=== PATIENT | female | born 1995 | race Caucasian/White ===

== ENCOUNTER 2018-02-20 22:27 | Emergency (ER) | payer OTHER, SELFPAY ==
[2018-02-20] MEDS: AMOXICILLIN 500 MG CAP PO (23:01)
[2018-02-20] MEDS: PERCOCET 5MG/325MG TAB PO (23:02)
== END 2018-02-20 23:16 | disposition home or self-care (01) ==
LOC: M ED 22:27
DX: K02.9 Dental caries, unspecified (principal); F17.210 Nicotine dependence, cigarettes, uncomplicated; Z88.8 Allergy status to other drugs, medicaments and biological substances
CPT/HCPCS: 99282

== ENCOUNTER 2020-10-13 21:23 | Emergency (ER) | payer OTHER, SELFPAY ==
[~2020-10-13] VITALS: Ht 152.4 cm; Wt 48.2 kg
[2020-10-13 21:23] VITALS: BP 143/76
[~2020-10-13 21:23] MED LIST: ACET500T15 PO; AMOX500C PO
[2020-10-13] MEDS ORDERED: KEFLEX PO (21:30)
[2020-10-13] MEDS ORDERED: LIDOCAINE 4% TOPICAL SOLN 50 ML BTL TOP ONE (21:55)
[2020-10-13] MEDS ORDERED: BACI500O21 TOP (22:00)
== END 2020-10-13 22:27 | disposition home or self-care (01) ==
LOC: M ED 21:23
DX: G89.18 Other acute postprocedural pain (principal); S81.811D Laceration without foreign body, right lower leg, subsequent encounter; X58.XXXD Exposure to other specified factors, subsequent encounter; Y92.89 Other specified places as the place of occurrence of the external cause; Z88.8 Allergy status to other drugs, medicaments and biological substances

== ENCOUNTER 2021-04-11 22:23 | Emergency (ER) | payer OTHER ==
[~2021-04-11] VITALS: Ht 152.4 cm; Wt 45.2 kg
[~2021-04-11 22:23] MED LIST changes: +BACI500O21 TOP; +KEFLEX PO
[2021-04-11 22:24] VITALS: BP 127/79
--- OUTSIDE RECORDS SUMMARY | 2021-04-11 22:30 | CCD ---
Author Author [facility] Organization [facility] Address Unknown Phone Unavailable Care Team Providers Care Delivery Assistant Name Role Phone Elio Szymanski MD Unavailable Unavailable Elio Szymanski MD Unavailable Unavailable Elio Szymanski MD Unavailable Unavailable Elio Szymanski MD Unavailable Unavailable GRAY GONZALEZ MD Unavailable Unavailable GRAY GONZALEZ MD Unavailable Unavailable GRAY GONZALEZ MD Unavailable Unavailable GRAY GONZALEZ MD Unavailable Unavailable GRAY GONZALEZ MD Unavailable Unavailable GRAY GONZALEZ MD Unavailable Unavailable GRAY GONZALEZ MD Unavailable Unavailable GRAY GONZALEZ MD Unavailable Unavailable GRAY GONZALEZ MD Unavailable Unavailable GRAY GONZALEZ MD Unavailable Unavailable GRAY GONZALEZ MD Unavailable Unavailable GRAY GONZALEZ MD Unavailable Unavailable GRAY GONZALEZ MD Unavailable Unavailable Noah Martinez MD Unavailable Unavailable Noah Martinez MD Unavailable Unavailable Prionas, Noah Unavailable Unavailable Prionas, Noah Unavailable Unavailable Prionas, Noah Unavailable Unavailable Prionas, Noah Unavailable Unavailable Prionas, Noah Unavailable Unavailable Prionas, Noah Unavailable Unavailable Prionas, Noah Unavailable Unavailable Prionas, Noah Unavailable Unavailable Prionas, Noah Unavailable Unavailable Prionas, Noah Unavailable Unavailable Prionas, Noah Unavailable Unavailable Prionas, Noah Unavailable Unavailable Prionas, Noah Unavailable Unavailable Prionas, Noah Unavailable Unavailable Prionas, Noah Unavailable Unavailable Prionas, Noah Unavailable Unavailable Prionas, Noah Unavailable Unavailable Prionas, Noah Unavailable Unavailable Prionas, Noah Unavailable Unavailable Prionas, Noah Unavailable Unavailable Prionas, Noah Unavailable Unavailable Prionas, Noah Unavailable Unavailable Prionas, Noah Unavailable Unavailable Zane, Cindy Min MD Unavailable Unavailable Zane, Cindy Min MD Unavailable Unavailable Zane, Cindy Min MD Unavailable Unavailable UnkenCharlene watts MD Unavailable Unavailable UnkenCharlene watts MD Unavailable Unavailable UnkenCharlene watts MD Unavailable Unavailable UnkenholCharlene sellers MD Unavailable Unavailable UnkenholCharlene sellers MD Unavailable Unavailable UnkenCharlene watts MD Unavailable Unavailable Emani Palacios M.D. Unavailable Unavailable PRASHANT, [place] INGRAM SMALL MACHINE BINDERY OPERATOR, BC Unavailable Unavailable PRASHANT, [place] INGRAM SMALL MACHINE BINDERY OPERATOR, BC Unavailable Unavailable PRASHANT, [place] INGRAM SMALL MACHINE BINDERY OPERATOR, BC Unavailable Unavailable PRASHANT, [place] INGRAM SMALL MACHINE BINDERY OPERATOR, BC Unavailable Unavailable PRASHANT, [place] INGRAM SMALL MACHINE BINDERY OPERATOR, BC Unavailable Unavailable PRASHANT, [place] INGRAM SMALL MACHINE BINDERY OPERATOR, BC Unavailable Unavailable PRASHANT, [place] INGRAM SMALL MACHINE BINDERY OPERATOR, BC Unavailable Unavailable PRASHANT, [place] INGRAM SMALL MACHINE BINDERY OPERATOR, BC Unavailable Unavailable PRASHANT, [place] INGRAM SMALL MACHINE BINDERY OPERATOR, BC Unavailable Unavailable PRASHANT, [place] INGRAM SMALL MACHINE BINDERY OPERATOR, BC Unavailable Unavailable PRASHANT, [place] INGRAM SMALL MACHINE BINDERY OPERATOR, BC Unavailable Unavailable PRASHANT, [place] INGRAM SMALL MACHINE BINDERY OPERATOR, BC Unavailable Unavailable PRASHANT, [place] INGRAM SMALL MACHINE BINDERY OPERATOR, BC Unavailable Unavailable PRASHANT, [place] INGRAM SMALL MACHINE BINDERY OPERATOR, BC Unavailable Unavailable PRASHANT, [place] INGRAM SMALL MACHINE BINDERY OPERATOR, BC Unavailable Unavailable PRASHANT, [place] INGRAM SMALL MACHINE BINDERY OPERATOR, BC Unavailable Unavailable PRASHANT, [place] INGRAM SMALL MACHINE BINDERY OPERATOR, BC Unavailable Unavailable PRASHANT, [place] INGRAM SMALL MACHINE BINDERY OPERATOR, BC Unavailable Unavailable PRASHANT, [place] INGRAM SMALL MACHINE BINDERY OPERATOR, BC Unavailable Unavailable PRASHANT, [place] INGRAM SMALL MACHINE BINDERY OPERATOR, BC Unavailable Unavailable PRASHANT, [place] INGRAM SMALL MACHINE BINDERY OPERATOR, BC Unavailable Unavailable PRASHANT, [place] INGRAM SMALL MACHINE BINDERY OPERATOR, BC Unavailable Unavailable PRASHANT, CHARLY SMALL MACHINE BINDERY OPERATOR, BC Unavailable Unavailable PRASHANT, CHARLY SMALL MACHINE BINDERY OPERATOR, BC Unavailable Unavailable PRASHANT, CHARLY SMALL MACHINE BINDERY OPERATOR, BC Unavailable Unavailable PRASHANT, [place] INGRAM SMALL MACHINE BINDERY OPERATOR, BC Unavailable Unavailable PRASHANT, [place] INGRAM SMALL MACHINE BINDERY OPERATOR, BC Unavailable Unavailable PRASHANT, [place] INGRAM SMALL MACHINE BINDERY OPERATOR, BC Unavailable Unavailable PRASHANT, CHARLY SMALL MACHINE BINDERY OPERATOR, BC Unavailable Unavailable PRASHANT, [place] INGRAM SMALL MACHINE BINDERY OPERATOR, BC Unavailable Unavailable PRASHANT, [place] INGRAM SMALL MACHINE BINDERY OPERATOR, BC Unavailable Unavailable PRASHANT, [place] INGRAM SMALL MACHINE BINDERY OPERATOR, BC Unavailable Unavailable PRASHANT, [place] INGRAM SMALL MACHINE BINDERY OPERATOR, BC Unavailable Unavailable Re-disclosure Warning The records that you are about to access may contain information from federally-assisted alcohol or drug abuse programs. If such information is present, then the following federally mandated warning applies: This information has been disclosed to you from records protected by federal confidentiality rules (42 CFR part 2). The federal rules prohibit you from making any further disclosure of this information unless further disclosure is expressly permitted by the written consent of the person to whom it pertains or as otherwise permitted by 42 CFR part 2. A general authorization for the release of medical or other information is NOT sufficient for this purpose. The Federal rules restrict any use of the information to criminally investigate or prosecute any alcohol or drug abuse patient.The records that you are about to access may contain highly sensitive health information, the redisclosure of which is protected by Article 27-F of the [facility] Public Health law. If you continue you may have access to information: Regarding HIV / AIDS; Provided by facilities licensed or operated by the [facility] Office of Mental Health; or Provided by the [facility] Office for People With Developmental Disabilities. If such information is present, then the following [facility] mandated warning applies: This information has been disclosed to you from confidential records which are protected by state law. State law prohibits you from making any further disclosure of this information without the specific written consent of the person to whom it pertains, or as otherwise permitted by law. Any unauthorized further disclosure in violation of state law may result in a fine or nursing home sentence or both. A general authorization for the release of medical or other information is NOT sufficient authorization for further disc losure. Encounters Encounter Providers Location Date Indications Data Source(s ) Emergency Attender: Shaquille Negron MD SURG-ER 03/27/2021 01:29:00 AM EDT [facility] Patient discharged. Emergency Attender: Elio Szymanski MD SURG-ER 021 07:21:00 PM EDT - 03/12/2021 09:55:00 PM EDT [facility] Emergency Attender: Elio Szymanski MD SURG-ER 03/12/2021 07:21:00 PM EDT [facility] Patient discharged. Emergency Attender: Shaquille Negron MD SURG-ER 01/21 05:27:00 AM EDT - 02/01/2021 06:27:00 AM EDT [facility] Emergency Attender: Shaquille Negron MD SURG-ER 02/01/2021 05:27:00 AM EDT [facility]. Patient discharged. Emergency Attender: Pako Degroot MD CPSCAORT-ED 12/12/19 06:23:00 AM EDT - 12/11/2020 10:20:00 AM EDT BACK PAIN [facility] BACK PAIN Patient discharged. Emergency Attender: Elio Szymanski MD SURG-ER 021 10:57:00 PM EDT - 11/14/2020 02:30:00 AM EDT [facility]. Emergency Attender: Elio Szymanski MD SURG-ER 11/13/2020 10:57:00 PM EDT [facility]. Patient discharged. Emergency SURG-ER 10/09/2020 10:45:00 PM EDT [facility] Patient discharged. Outpatient Attender: M[facility]O DEY [facility] [place] [place] 04/25/2020 01:00:00 PM EST [facility] Outpatient Attender: MATEO DEY-IMAPD 04/08/2020 06:12:00 PM EDT - 04/08/2020 06:13:00 PM EDT M25.561 [facility] M25.561 Patient discharged. Emergency SURG-ER 04/04/2020 01:33:00 AM EDT [facility] Patient discharged. Emergency Attender: Veronica Palacios M.D. SURG-ER 1 06:07:00 PM EDT - 03/30/2020 10:41:00 PM EDT [facility]. Patient discharged. Emergency Attender: GRAY GONZALEZ MDReferrer: Noah atkinson MD SURG-ER 03/12/2020 06:56:00 PM EDT - 03/12/2020 08:18:00 PM EDT [facility] Patient discharged. Emergency Attender: Shaquille Negron MD SURG-ER 07/2019 01:15:00 AM EDT - 12/23/2019 04:00:00 AM EDT [facility] Patient discharged. Medications Medication Brand Name Start Date Product Form Dose Route Admi nistrative Instructions Pharmacy Instructions Status Indications Reaction Description Data Source(s) 20 mg 03/31/2020 12:00:00 AM EDT tablet 10 TAKE TWO TABLETS BY MOUTH EVERY DAY FOR 5 DAYS TAKE TWO TABLETS BY MOUTH EVERY DAY FOR 5 DAYS SOLD: 020 [facility] Insurance Providers Payer name Policy type / Coverage type Policy ID Covered constitution party ID Covered constitution party's relationship to camara Policy Camara Plan Information [employer] [id number] F [id number] [facility] [id number] FA [id number] [facility] [id number] FA [id number] [facility] [id number] FA [id number] S[employer] I [id number] Self [id number] [employer] CARE [id number] S [id number] [employer] MEDICAID MANAGED CARE [id number] SP [id number] SELF PAY UNAVAILABLE SP UNAVAILA BLE MEDICAID [id number] Unemployed [id number] [employer] [place] [id number] Unemployed [id number] [employer] MEDICAID MANAGED CARE [id number] SP [id number] SELF-PAY UNAVAILABLE UNAVAILA BLE AUTO NO FAULT [id number] S [id number] [place] [id number] S [id number] MEDICAID GME W [id number] SCOOTER [id number] SP [id number] MEDICAID GME W UNAVAILABLE S UNAVA ILABLE [facility] [id number] Unemployed [id number] SELF PAY [id number] SP [id number] SELF PAY ONLY [id number] SP [id number] [facility] MEDICAID [id number] SP [id number] SELF PAY Unemployed [employer] [employer] MANAGED CARE [id number] Problems, Conditions, and Diagnoses Code Display Name Description Problem Type Effective Dates Data Source(s) Z53.20 Procedure and treatment not carried out because of patient's decision for unspecified reasons PROC/TRTMT NOT CRD OUT BEC PT DECISION FOR UNSP REASON S Diagnosis 12/11/2020 06:23:00 AM EDT [facility] D72.829 Elevated white blood cell count, unspeci fied ELEVATED WHITE BLOOD CELL COUNT, UNSPECIFIED Diagnosis 12/11/2020 06:23:00 AM EDT [facility] N13.9 Obstructive and reflux uropathy, unspeci fied OBSTRUCTIVE AND REFLUX UROPATHY, UNSPECIFIED Diagnosis 12/11/2020 06:23:00 AM EDT [facility] N39.0 Urinary tract infection, site not specif ied URINARY TRACT INFECTION, SITE NOT SPECIFIED Diagnosis 12/11/2020 06:23:00 AM [facility] N13.2 Hydronephrosis with renal and ureteral c alculous obstruction HYDRONEPHROSIS WITH RENAL AND URETERAL CALCULOUS OBSTRUCTION Diagnosis 12/11/2020 06:23:00 AM [facility] Z72.0 Tobacco use TOBACCO USE Diagnosis 04/25/2020 01:00:00 PM [facility] M25.561 Pain in right knee PAIN IN RIGHT KNEE Diagnosis 08/2019 01:00:00 PM [facility] Surgeries/Procedures Procedure Description Date Indications Data Source(s) EMERGENCY DEPARTMENT VISIT MODERATE SEVERITY EMERGENCY DEPT VISIT 02/01/2021 12:00:00 AM [facility] EMERGENCY DEPARTMENT VISIT MODERATE SEVERITY EMERGENCY DEPT VISIT 02/01/2021 12:00:00 AM [facility] EMERGENCY DEPARTMENT VISIT MODERATE SEVERITY EMERGENCY DEPT VISIT 02/01/2021 12:00:00 AM [facility] EMERGENCY DEPARTMENT VISIT MODERATE SEVERITY EMERGENCY DEPT VISIT 02/01/2021 12:00:00 AM [facility] ULTRASOUND TRANSVAGINAL TRANSVAGINAL US NON-OB 12/11/2020 12:00:[address] [facility] CT ABDOEN & PELVIS W/CONTRAST MATERIAL CT ABD & PELV W/CONTR AST 12/11/2020 12:00:00 AM [facility] Low osmolar contrast material, 300-399 mg/ml iodine co ncentration, per ml Locm 300-399mg/ml iodine,1ml Long 12/11/2020 12:00:00 AM [facility] IADNA NEISSERIA GONORRHOEAE AMPLIFIED PROBE TQ N.GONORRHOEAE DNA AMP PROB 12/11/2020 12:00:00 AM [facility] IADNA CHLAMYDIA TRACHOMATIS AMPLIFIED PROBE TQ CHYLMD TRACH DNA AMP PROBE 12/11/2020 12:00:00 AM [facility] CUL PRSMPTV PTHGNC ORGANISM SCRN W/COLONY ESTIMJ CULTURE SCR EEN ONLY 12/11/2020 12:00:00 AM [facility] CULTURE BACTERIAL BLOOD AEROBIC W/ID ISOLATES BLOOD CULTURE FOR BACTERIA 12/11/2020 12:00:00 AM [facility] SUSCEPTIBLTY STDY ANTIMICRBIAL MICRO/AGAR DILUTJ MICROBE AMADO CEPTIBLE MARY 12/11/2020 12:00:00 AM [facility] URINALYSIS MICROSCOPIC ONLY MICROSCOPIC EXAM OF URINE 2020 12:00:00 AM [facility] BLOOD COUNT COMPLETE AUTO&AUTO DIFRNTL WBC COUNT COMPLETE CB C W/AUTO DIFF WBC 12/11/2020 12:00:00 AM [facility] MAGNESIUM ASSAY OF MAGNESIUM 12/11/2020 12:00:00 AM [facility] GONADOTROPIN CHORIONIC QUALITATIVE CHORIONIC GONADOTROPIN SAY 12/11/2020 12:00:00 AM [facility] URINE TEST VISUAL COLOR CMPRSN METHS URINE PREGNAN CY TEST 12/11/2020 12:00:00 AM [facility] LACTATE ASSAY OF LACTIC ACID 12/11/2020 12:00:00 AM [facility] C-REACTIVE PROTEIN C-REACTIVE PROTEIN 12/11/2020 12:00:00 AM [facility] LIPASE ASSAY OF LIPASE 12/11/2020 12:00:00 AM [facility] COMPREHENSIVE METABOLIC PANEL COMPREHEN METABOLIC PANEL 11/22 12:00:00 AM [facility] Injection, hydromorphone, up to 4 mg 12/11/2020 12:00: 00 AM [facility] Injection, acetaminophen, 10 mg 12/11/2020 12:00:00 AM [facility] Non-covered item or service NON-COVERED ITEM OR SERVICE 11/22 12:00:00 AM [facility] Injection, ceftriaxone sodium, per 250 mg 12/11/2020 1 2:00:00 AM [facility] THERAPEUTIC INJECTION IV PUSH EACH NEW DRUG TX/PRO/DX INJ NE W DRUG ADDON 12/11/2020 12:00:00 AM [facility] IV INFUSION THERAPY/PROPHYLAXIS /DX 1ST TO 1 HR THER/PROPH/D IAG IV INF INIT 12/11/2020 12:00:00 AM [facility] IV INFUSION HYDRATION EACH ADDITIONAL HOUR HYDRATE IV INFUSI ON ADD-ON 12/11/2020 12:00:00 AM [facility] EMERGENCY DEPT VISIT HIGH SEVERITY&THREAT FUNCJ EMERGENCY DE PT VISIT 12/11/2020 12:00:00 AM [facility] EMERGENCY DEPARTMENT VISIT MODERATE SEVERITY EMERGENCY DEPT VISIT 11/13[facility] H[facility]/URGENT SEVERITY EMERGENCY DE PT VISIT [facility] MODERATE SEVERITY EMERGENCY DEPT VISIT 11/13/[facility] HIGH/URGENT SEVERITY EMERGENCY DE PT VISIT 11/13/2020 [facility] MODERATE SEVERITY EMERGENCY DEPT VISIT 11/13/2020 12:00:00 AM [facility] EMERGENCY DEPARTMENT VISIT HIGH/URGENT SEVERITY EMERGENCY DE PT VISIT 11/13/2020 12:00:00 AM [facility] EMERGENCY DEPARTMENT VISIT MODERATE SEVERITY EMERGENCY DEPT VISIT 10/09/2020 12:00:00 AM EDT [facility] EMERGENCY DEPARTMENT VISIT MODERATE SEVERITY EMERGENCY DEPT VISIT 10/09/2020 12:00:00 AM EDT [facility] SMPL REPAIR SCALP/NECK/AX/GENIT/TRUNK 2.6-7.5CM RPR S/N/AX/G EN/TRNK2.6-7.5CM 10/09/2020 12:00:00 AM EDT [facility] SMPL REPAIR SCALP/NECK/AX/GENIT/TRUNK 2.6-7.5CM RPR S/N/AX/G EN/TRNK2.6-7.5CM 10/09/2020 12:00:00 AM EDT [facility] EMERGENCY DEPARTMENT VISIT MODERATE SEVERITY EMERGENCY DEPT VISIT 10/09/2020 12:00:00 AM EDT [facility] EMERGENCY DEPARTMENT VISIT MODERATE SEVERITY EMERGENCY DEPT VISIT 10/09/2020 12:00:00 AM EDT [facility] SMPL REPAIR SCALP/NECK/AX/GENIT/TRUNK 2.6-7.5CM RPR S/N/AX/G EN/TRNK2.6-7.5CM 10/09/2020 12:00:00 AM EDT [facility] SMPL REPAIR SCALP/NECK/AX/GENIT/TRUNK 2.6-7.5CM RPR S/N/AX/G EN/TRNK2.6-7.5CM 10/09/2020 12:00:00 AM EDT [facility] EMERGENCY DEPARTMENT VISIT MODERATE SEVERITY EMERGENCY DEPT VISIT 10/09/2020 12:00:00 AM EDT [facility] EMERGENCY DEPARTMENT VISIT MODERATE SEVERITY EMERGENCY DEPT VISIT 10/09/2020 12:00:00 AM EDT [facility] SMPL REPAIR SCALP/NECK/AX/GENIT/TRUNK 2.6-7.5CM RPR S/N/AX/G EN/TRNK2.6-7.5CM 10/09/2020 12:00:00 AM EDT [facility] SMPL REPAIR SCALP/NECK/AX/GENIT/TRUNK 2.6-7.5CM RPR S/N/AX/G EN/TRNK2.6-7.5CM 10/09/2020 12:00:00 AM EDT [facility] EMERGENCY DEPARTMENT VISIT MODERATE SEVERITY EMERGENCY DEPT VISIT 10/09/2020 12:00:00 AM EDT [facility] EMERGENCY DEPARTMENT VISIT MODERATE SEVERITY EMERGENCY DEPT VISIT 10/09/2020 12:00:00 AM EDT [facility] SMPL REPAIR SCALP/NECK/AX/GENIT/TRUNK 2.6-7.5CM RPR S/N/AX/G EN/TRNK2.6-7.5CM 10/09/2020 12:00:00 AM EDT [facility] SMPL REPAIR SCALP/NECK/AX/GENIT/TRUNK 2.6-7.5CM RPR S/N/AX/G EN/TRNK2.6-7.5CM 10/09/2020 12:00:00 AM EDT [facility] EMERGENCY DEPARTMENT VISIT MODERATE SEVERITY EMERGENCY DEPT VISIT 10/09/2020 12:00:00 AM EDT [facility] EMERGENCY DEPARTMENT VISIT MODERATE SEVERITY EMERGENCY DEPT VISIT 10/09/2020 12:00:00 AM EDT [facility] SMPL REPAIR SCALP/NECK/AX/GENIT/TRUNK 2.6-7.5CM RPR S/N/AX/G EN/TRNK2.6-7.5CM 10/09/2020 12:00:00 AM EDT [facility] SMPL REPAIR SCALP/NECK/AX/GENIT/TRUNK 2.6-7.5CM RPR S/N/AX/G EN/TRNK2.6-7.5CM 10/09/2020 12:00:00 AM EDT [facility] OFFICE OUTPATIENT VISIT 5 MINUTES OFFICE/OUTPATIENT VISIT ES T 04/25/2020 12:00:00 AM [facility] THERAPEUTIC PROPHYLACTIC/DX INJECTION SUBQ/IM THER/PROPH/DIVYA G INJ SC/IM 04/25/2020 12:00:00 AM [facility] EMERGENCY DEPARTMENT VISIT MODERATE SEVERITY EMERGENCY DEPT VISIT 03/12/2020 12:00:00 AM EDT [facility] EMERGENCY DEPARTMENT VISIT MODERATE SEVERITY EMERGENCY DEPT VISIT 03/12/2020 12:00:00 AM EDT [facility] EMERGENCY DEPARTMENT VISIT MODERATE SEVERITY EMERGENCY DEPT VISIT 03/12/2020 12:00:00 AM EDT [facility] EMERGENCY DEPARTMENT VISIT MODERATE SEVERITY EMERGENCY DEPT VISIT 03/12/2020 12:00:00 AM EDT [facility]. Results ID Date Data Source [id number] 03/12/2021 09:04:00 PM EDT [facility]. RIGHT HANDFindings/Impression: There is no fracture or dislocation. Nosignificant degenerative changes. No acute soft tissue abnormality.Dictated on 03/12/21 2104 by Brett Sandoval M.D.Transcribed on 03/13/21 1122 by Jeffy Rivera by Brett Sandoval M.D. on 03/14/21 1156Sign by: Brett Sandoval M.D. Name Value Range Interpretation Code Description Data Jammie rce(s) Supporting Document(s) ID Date Data Source [id number] 02/01/2021 07:13:00 AM EDT [facility]. RADIOGRAPH OF THE RIGHT KNEEClinical his tory: A 25-year-old female with knee injury.Comparison: 03/30/2020.FINDINGS: Three views of the right knee are reviewed.The joint spaces are intact.No acute fractures are evident.No significant joint effusion.No radiopaque foreign bodies.IMPRESSION: NO ACUTE OSSEOUS ABNORMALITIES.Dictated on 02/01/21 0713 by Angeles Laguerre M.D.Transcribed on 02/02/21 1050 by Rosalinda Field MSign by Angeles Laguerre M.D. on 02/06/21 1139Sign by: Angeles Laguerre M.D. Name Value Range Interpretation Code Description Data Jammie rce(s) Supporting Document(s) ID Date Data Source [id number] 12/11/2020 06:23:00 AM EDT [facility] Name: KAROL HAMM [facility] Rec #: [id number] 22 : 1995 Age/Sex: 25F Date of Service: 12/11/20 DISPOSITION SUMMARY Discharge Summary [facility] Name:[facility]ol [facility] Emergency Department Age:25 yrs Sex:Female :1995 Arrival:12/11/2020 06:23 Departure Date12/11/2020 Departure Time10:31 Private MD:None, Primary Care Provider- Outcome: Left Against Medical Advice Location: Home Condition: Chief Complaint: Back Pain Diagnosis: - 5 mm distal right ureteral stone with hydroureter and hydronephrosis, - Urinary tract infection in the setting of obstructive uropathy Prescriptions: cefpodoxime 200 mg Oral tablet - take 1 tablet by ORAL route every 12 hours for 14 days with food; 28 tablet, Flomax 0.4 mg Oral Capsule - take 1 capsule by ORAL route once daily 1/2 hour following the same meal each day; 7 capsule Follow up: Jake Maya MD Custom Notes: <span>On your evaluation today,</span><span> you appear to be passing a kidney stone that is causing obstruction of the right kidney and ureter.<span> Your laboratory studies also suggest urinary tract infe ction.</span></span><span>
</span><span><span>These 2 findings in combination can make people very ill; </span><span><span> sometimes causing critical illness, sepsis<span>, . </span></span><span><span>T</span></span>hese<span> problems</span> are generally managed with IV antibiotics and sometimes even a surgical procedure to remove the stone and the obstruction.</span></span><span>
</span><span><span>If your symptoms fail to improve or worsen please return for further evaluation.</span><span> At the very least, please take the antibiotics and follow-up with Dr. Maya tomorrow.</sp an></span><span>
</span><span><span>Feel free to return at anytime for any reason.</span></span> Attending Physician: Missael Saldana DO Private MD: None, Primary Care Provider- Mid Level Provider: Followup Physician: Jake Maya MD Orders: Cbc With Auto Differential, COMMET, C- Reactive Protein,Wide Range, Magnesium, Lipase, UA., Urine HCG, Ct Abdomen & Pelvis with Con, Lactic Acid, Blood Culture - Venous, Chlamydia/GC Amp Probe Urine, Beta Hcg,Qualitative, Urinalysis Auto w/Microscopy, Urine Culture, Collect Urine - Clean Catch, NS 0.9%, Ondansetron (PF), Ofirmev, HYDROmorphone, Straight Cath: prn cannot provide, Transvaginal -US, NS 0.9%, Flomax, Potassium C hloride, Lidocaine, cefTRIAXone Discharge Instruction: Discharge Summary Sheet, Kidney Stones, Urinary Tract Infection, Adult, Medication Reconciliation, AMA Form Name Value Range Interpretation Code Description Data Jammie rce(s) Supporting Document(s) ID Date Data Source [id number] 12/11/2020 06:23:00 AM EDT [facility] Name: KAROL HAMM [facility] Rec #: [id number] 22 : 1995 Age/Sex: 25F Date of Service: 12/11/20 PHYSICIAN CHART Physician Documentation [facility] Name: Karol Hamm Age: 25 yrs Sex: Female : 1995 Arrival Date: 12/11/2020 Time: 06:23 Bed 1 Private MD: None, Primary Care Provider- ED Physician Missael Saldana HPI: 12/11 06:32 This 25 yrs old Female presents to ER via [facility] aa with complaints of Back Pain. 06:32 Patient 25-year-old female no prior past medical history aaq presenting with right flank and right lower quadrant pain. Patient states that she was in her normal state of health when she woke abruptly from sleep with significant right flank pain. She describes this as sharp and achy, constant pain that radiates to the right lower quadrant. Nothing seems to make it better or worse. It is associated with some mild nausea and vomiting. She denies fevers but does endorse some chills as well. She never had pain like this before and other than C-sections has had no abdominal surgeries. Of note patient is allergic to NSAIDs. Denies any changes in bowel or bladder habitus.. Historical: - Allergies: NSAIDS; - Home Meds: 1. None - PMHx: MIGRAINES; Angina pectoris; - PSHx: None; - Med Reconciliation:: Green Alert: The patient's med list is complete to the best of the nurse's/provider's knowledge. Medications reviewed, verbally from patient/family. - Immunization history,: All immunizations are up to date. - Advance directive: There is no existing advanced directive. Information offered. - Family History:: mother Father. - Social History: Smoking status (Tobacco): Patient's tobacco-smoking history is unknown. Preferred Language: Peruvian. ROS: 06:33 Constitutional: A 10 point review of systems was completed aaq and negative with the exception of what is documented in the HPI. Exam: 06:34 Constitutional: General: Well-appearing in no obvious aaq distress Head: Normocephalic, atraumatic Neck: Supple, no meningismus Chest: Atraumatic, nontender Cardiovascular: Normal rate and rhythm, no murmurs rubs or gallops Pulmonary: No respiratory distress, satting well on room air, clear to auscultation bilaterally Abdomen/: Soft, right-sided CVA tenderness, right upper quadrant pain, right lower quadrant pain, with voluntary guarding Extremities: Nontender, full range of motion Neuro: Alert and oriented Skin: No rashes, warm and dry Vital Signs: 06:28 BP 134 / 90; Pulse 68; Resp 12; Temp 97.8(TE); Pulse Ox skb 100% on R/A; Weight 45.36 kg; Height 5 ft. 0 in. (152.40 cm); Pain 8/10; 06:51 BP 126 / 85; Pulse 62; Resp 12; Pulse Ox 99% on R/A; skb 07:04 BP 118 / 76 RA Supine (auto/reg); Pulse 84 MON; Resp 18 S; am7 Pulse Ox 99% on R/A; Pain 0/10; 07:41 BP 105 / 62 RA Supine (auto/reg); Pulse 85 MON; Resp 15 S; am7 Pulse Ox 98% on R/A; Pain 0/10; 06:28 Body Mass Index 19.53 (45.36 kg, 152.40 cm) skb 06:51 sleeping skb 07:04 pt asleep am7 07:41 pt is asleep in bed. am7 MDM: 06:26 Patient medically screened. aaq 06:34 ED course: Patient 25-year-old female history of migraines aaq presenting with right flank and abdominal pain. Differential is broad we will check labs, urinalysis, CT as well as give pain control.. 07:21 ED course: Signout report 25-year-old female history of rc3 chronic back pain, high-frequency ER user only abdominal surgical history in the past presents with right flank pain rating to the right lower quadrant nausea and vomiting as well as chills. Only laboratory study resulted at signout CBC with elevated white blood cell count. CT and remainder of labs are pending. No red flag symptoms for cauda equina syndrome.. 08:37 ED course: Transvaginal ultrasound read: IUD in good rc3 position. 1.8 x 1.3 cm x 2.3 cm functional cyst in the left ovary. CT of the abdomen and pelvis read: Severe hydronephrosis on the right. 5 mm distal right ureteral calculus. Multiple tiny calculi in the right kidney. Examination is otherwise unremarkable. All images also reviewed by me.. 09:22 ED course: When active treatment room patient appears rc3 comfortable sitting comfortably on the treatment stretcher talking on the phone. Mild right flank tenderness anterior abdomen is soft nontender x4 quadrants. Patient was informed that she has ureterolithiasis which she relayed to the person on the phone. Difficult to obtain additional history given the ongoing conversation in the room however the patient appeared comfortable hemodynamically stable, skin pink warm and dry. No respiratory distress.. 10:03 Refusal of service: The patient/guardian displays adequate rc3 decision making capability and despite a detailed discussion of alternatives, benefits, risks, and consequences refuses: Admission to the hospital for further work-up and treatment, Medications, Upon seeing markers for urinary tract infection on urinalysis with distal right ureteral obstructive stone and hydronephrosis I ordered IV ceftriaxone and paged urology as well as the hospitalist for anticipated admission. Treating RN went into the room to administer ceftriaxone the patient informed her that she is feeling well she does not want IV antibiotics and she is leaving. Was informed this discussion went back to discuss the findings with the patient. She states she is feeling well at this time. We had a discussion about my concerns for obstructive infected stones causing sepsis and severe illness and possibly permanent disability or even without treatment. I did inform the patient that generally obstructed infected stones were treated in the hospital and sometimes require urologic procedures to clear the obstruction. She states she understands but that she is leaving. I did invite the patient to return for any reason at any time. I do not find signs of acute psychosis, intoxication, suicidal ideation. I believe this patient has decision-making capacity the right to refuse treatment as well as admission and I do not find reason to hold this patient against her will. I did strongly encourage her to return for any worsening symptoms. Will prescribe oral third-generation cephalosporin.. 10:23 ED course: Dr. Maya did call back. Will see the patient rc3 the office. Agreed strongly encourages the patient to stay. If she changes her mind regarding treatment would be happy to see the patient.. 15:36 Data reviewed: vital signs, nurses notes, old medical rc3 records, lab test result(s), EKG, radiologic studies. Counseling: I had a detailed discussion with the patient and/or guardian regarding: diagnosis, the need for outpatient follow up. 15:37 Data reviewed: [facility] Prescription Monitoring Program rc3 Registry. 12/11 06:31 Order name: Cbc With Auto Differential; Complete Time: :00aaq 12/11 07:00 Interpretation: WBC 17.3; RBC 4.41; HGB 13.3; HCT 37.4; MCV aaq 84.8; MCH 30.2; MCHC 35.6; RDW 13.1; PLT 350; MPV 10.7; ImmGran% (AUTO) 0; Neut% (AUTO) 88; Lymph% (AUTO) 6; [place]% (AUTO) 5; Eos% (AUTO) 0; Baso% (AUTO) 0; ImmGran# (AUTO) 0.1; Neut# (AUTO) 15.3; Lymph# (AUTO) 1.1; [place]# (AUTO) 0.9; Eos# (AUTO) <0.03; Baso# (AUTO) 0.0. 12/11 06:31 Order name: COMMET; Complete Time: 07: aaq 12/11 07:24 Interpretation: NA 140; K 3.3; CL 109; CO2 27.0; GAP 4.0; rc3 BUN 13; CREAT 0.76; Glom Filtration > 90; GLU 127; CA 10.5; Corrected CA 10.8; T Bili 0.5; SGOT(AST) 12; SGPT(ALT) 21; ALK PHOS 80; TP 6.6; ALB 3.6. 12/11 06:31 Order name: C-Reactive Protein,Wide Range; Complete Time: aaq 07:12/11 07:24 Interpretation: CRP-wr 6.11; Minimal elevation. [facility] 12/11 06:31 Order name: Magnesium; Complete Time: 07: aaq 12/11 07:25 Interpretation: MG 1.90. [facility] 12/11 06:31 Order name: Lipase; Complete Time: 07:23 aaq 12/11 07:25 Interpretation: LIP 82. [facility] 12/11 06:31 Order name: UA.; Complete Time: : aaq 12/11 09:24 Interpretation: Ur Color Mariely; Ur Clarity Cloudy; Ur Spec rc3 gravity 1.023; Ur PH 6.0; Ur Protein Trace; Ur Glucose Negative; Ur Ketones 15; Ur Blood Large; Ur Bilirubin Negative; Ur Urobilinogen 1.0; Ur Leuk Est 1+ Small; Ur Nitrite Positive. 12/11 06:31 Order name: Urine HCG; Complete Time: 09:23 aaq 12/11 06:31 Order name: Ct Abdomen & Pelvis with Con aaq 12/11 07:04 Order name: Lactic Acid; Complete Time: 07:23 aaq 12/11 07:25 Interpretation: Lactic 1.0. rc3 12/11 07:04 Order name: Blood Culture - Venous aaq 12/11 07:26 Order name: Chlamydia/GC Amp Probe Urine rc3 12/11 07:27 Order name: Beta Hcg,Qualitative; Complete Time: 08:33 rc3 12/11 08:34 Interpretation: Beta HCG,Screen Negative. rc3 12/11 08:44 Order name: Urinalysis Auto w/Microscopy; Complete Time: EDMS 09:23 12/11 09:24 Interpretation: White blood cell count too numerous to 3 count, RBC 11-20, few epithelial cells, many bacteria seen . 12/11 08:46 Order name: Urine Culture EDMS 12/11 06:31 Order name: Collect Urine - Clean Catch; Complete Time: aaq 08:12 12/11 07:27 Order name: Transvaginal -US rc3 Dispensed Medications: 06:42 Drug: Ofirmev 1000 mg [Ofirmev 1,000 mg/100 mL (10 mg/mL) skb intravenous solution] Route: IVPB; Site: left antecubital; 06:50 Follow up: IV Status: Completed infusion; IV Intake: 100ml skb 07:05 Follow up: IV Status: Completed infusion; IV Intake: 100ml am7 06:43 Drug: NS 0.9% 1000 ml [sodium chloride 0.9 % intravenous skb solution] Route: IV; Rate: 999 mL/hr; Site: left antecubital; 07:48 Follow up: IV Status: Completed infusion; IV Intake: 1000ml am7 06:43 Drug: Ondansetron (PF) 4 mg [ondansetron HCl (PF) 4 mg/2 mL skb injection solution (2 mL)] Route: IVP; Infused Over: 2 mins; Site: left antecubital; 07:05 Follow up: Response: Nausea is decreased; No adverse am7 reaction 06:50 Drug: HYDROmorphone 0.5 mg [hydromorphone 0.5 mg/0.5 mL skb injection syringe (0.5 mL)] Route: IVP; Site: left antecubital; 07:05 Follow up: Response: Pain is decreased; pt is asleep am7 09:50 Drug: Flomax 0.4 mg [tamsulosin 0.4 mg capsule (1 caps)] am7 Route: PO; 10:23 Follow up: Response: No adverse reaction rjh1 09:50 Drug: Potassium Chloride 20 mEq [potassium chloride ER 20 am7 mEq tablet,extended release (1 tabs)] Route: PO; 10:22 Follow up: Response: No adverse reaction rjh1 09:51 Not Given (Patient Refused): Lidocaine Patch 5 % (700 am7 mg/patch) 1 patches Topical once 10:22 Not Given (Patient Refused): cefTRIAXone 2 grams IVPB once; rjh1 order lactate and/or blood cultures if for sepsis Attach to a 100mL NS jimenez bag. Run over 30 minutes. 10:23 Not Given (Patient Refused): NS 0.9 % 1000 ml IV at 500 rjh1 mL/hr once Disposition Summary: 12/11/20 10:07 Left Ag ainst Medical Advice Location: Home rc3 Diagnosis - 5 mm distal right ureteral stone with hydroureter and rc3 hydronephrosis - Urinary tract infection in the setting of obstructive rc3 uropathy Followup: rc3 - With: Jake Maya MD - When: Tomorrow - Reason: Recheck today's complaints Followup: rc3 - With: Emergency Department - When: - Reason: At any time if your symptoms return or worsen or if you change your mind regarding further treatment at the hospital. Discharge Instructions: - Discharge Summary Sheet rc3 - Kidney Stones rc3 - Urinary Tract Infection, Adult rc3 Forms: - Medication Reconciliation rc3 - AMA Form rc3 Prescriptions: - cefpodoxime 200 mg Oral tablet - take 1 tablet by ORAL route every 12 hours for 14 rc3 days with food; 28 tablet; Refills: 0, Product Selection Permitted - Flomax 0.4 mg Oral Capsule - take 1 capsule by ORAL route once daily 1/2 hour rc3 following the same meal each day; 7 capsule; Refills: 0, Product Selection Permitted Signatures: Dispatcher [employer] Missael Washington DO DO rc3 Anali Pelayo RN RN skb Quinn, Adam, MD MD aaq Muldoon, Amanda, RN RN am7 Lashae Parrish RN rjh1 Corrections: (The following items were deleted from the chart) 06:33 06:32 . aaq aaq 08:12 07:26 Straight Cath+ANA ordered. rc3 am7 Name Value Range Interpretation Code Description Data Jammie rce(s) Supporting Document(s) ID Date Data Source [id number] 12/11/2020 06:23:00 AM EDT [facility] Name: KAROL HAMM [facility] Rec #: [id number] 22 : 1995 Age/Sex: 25F Date of Service: 12/11/20 NURSE CHART Nurse's Notes [facility] Name: Karol Hamm Age: 25 yrs Sex: Female : 1995 Arrival Date: 12/11/2020 Time: 06:23 Bed 1 Private MD: None, Primary Care Provider- Diagnosis: 5 mm distal right ureteral stone with hydroureter and hydronephrosis;Urinary tract infection in the setting of obstructive uropathy Presentation: 12/11 06:27 Transition of care: patient was not received from another [facility] [place] [place] [facility] setting of care. Presenting complaint: Patient states - Right lower back pain started abruptly at midnight, now radiating to RLQ. Have you travelled in the last 30 days? No. Have you had contact with an individual with a confirmed diagnosis of Ebola or COVID-19? No. 06:27 Method Of Arrival: [facility] 06:27 Acuity: Semi-Urgent - 4 skb 06:33 Care prior to arrival: See EMS report. 4 mg morphine skb Medication(s) given: Saline lock initiated. Triage Assessment: 06:31 SEPSIS SCREEN: A Confirmed or Suspected Infection is skb Unknown. Suicide Screening: Have you had thoughts of harming yourself or others? No. The patient appears to have no apparent distress, The patient is behaving appropriately according to age, cooperative. The patient complains of pain in right lower back. Historical: - Allergies: NSAIDS; - Home Meds: 1. None - PMHx: MIGRAINES; Angina pectoris; - PSHx: None; - Med Reconciliation:: Green Alert: The patient's med list is complete to the best of the nurse's/provider's knowledge. Medications reviewed, verbally from patient/family. - Immunization history,: All immunizations are up to date. - Advance directive: There is no existing advanced directive. Information offered. - Family History:: mother Father. - Social History: Smoking status (Tobacco): Patient's tobacco-smoking history is unknown. Preferred Language: Peruvian. Screenin:48 AUDIT 1. How often do you have a drink containing alcohol? am7 Never (0 points). Drug Abuse Screening Test: 1. Have you used drugs other than those required for medical reasons? No (0 points), screen is complete, no risk. Abuse screen: Denies threats or abuse. Nutritional screening: No deficits noted. Patient has no identifiable fall risk (Schmid Scale: 0 points). Assessment: 07:47 Musculoskeletal: Patient reports Pain in low back that am7 radiates into RLQ abd. Vital Signs: 06:28 BP 134 / 90; Pulse 68; Resp 12; Temp 97.8(TE); Pulse Ox skb 100% on R/A; Weight 45.36 kg; Height 5 ft. 0 in. (152.40 cm); Pain 8/10; 06:51 BP 126 / 85; Pulse 62; Resp 12; Pulse Ox 99% on R/A; skb 07:04 BP 118 / 76 RA Supine (auto/reg); Pulse 84 MON; Resp 18 S; am7 Pulse Ox 99% on R/A; Pain 0/10; 07:41 BP 105 / 62 RA Supine (auto/reg); Pulse 85 MON; Resp 15 S; am7 Pulse Ox 98% on R/A; Pain 0/10; 06:28 Body Mass Index 19.53 (45.36 kg, 152.40 cm) skb 06:51 sleeping skb 07:04 pt asleep am7 07:41 pt is asleep in bed. am7 Vitals: 10:25 pt refused discharge vitals because "she has to go". rjh1 ED Course: 06:23 Roderick Carolina, RN is Primary Nurse. cbc 06:23 Patient arrived in ED. cbc 06:26 Pako Degroot MD is Attending Physician. aaq 06:26 None, Primary Care Provider- is Private Physician. skb 06:28 Triage completed. skb 06:32 Arm band placed on right wrist. Bed in low position. Call skb light in reach. Side rails up X 1. 06:34 Maintain field IV. Dressing intact. Good blood return skb noted. Site clean & dry. Gauge of IV is 20gauge. IV is located in the left arm. 06:44 Labs drawn by lab staff. skb 06:56 Gayla Ozuna, ROSAMARIA is Primary Nurse. am7 06:56 Primary Nurse role handed off by Roderick Carolina RN skb 07:20 Attending Physician role handed off by Pako Degroot MD rc3 07:20 Missael Saldana DO is Attending Physician. rc3 07:43 Radiology: The patient was taken to get an ultrasound at am7 07:43. 07:43 Pt to US at this time. Pt ambulated to with easy/steady am7 gait. 07:43 Transvaginal -US Sent. am7 08:10 Radiology: Patient returned from CT at 08:10. edv 08:12 Radiology: The patient went to get his/her CT at 08:00. am7 08:12 Ct Abdomen & Pelvis with Con Sent. am7 08:12 No procedures ordered. Urine collected. Clean catch am7 specimen. 09:51 This RN entered patients room to given PO and IV ABX for a am7 obstructed and infected renal calculi. Pt stating she does not want to stay for IV antibiotics and wants to leave. When this RN educated pt on risks of leaving without the proper abx she states she "I don't give a fuck I will just walk out". Pt refusing IV Ceftriaone and Lidocaine patch at this time. Pt took PO Flomax and PO Potassium. MD Saldana updated on current situation at hand. 10:06 Jake Maya MD is Referral Physician. rc3 Administered Medications: 06:42 Drug: Ofirmev 1000 mg [Ofirmev 1,000 mg/100 mL (10 mg/mL) skb intravenous solution] Route: IVPB; Site: left antecubital; 06:50 Follow up: IV Status: Completed infusion; IV Intake: 100ml skb 07:05 Follow up: IV Status: Completed infusion; IV Intake: 100ml am7 06:43 Drug: NS 0.9% 1000 ml [sodium chloride 0.9 % intravenous skb solution] Route: IV; Rate: 999 mL/hr; Site: left antecubital; 07:48 Follow up: IV Status: Completed infusion; IV Intake: 1000ml am7 06:43 Drug: Ondansetron (PF) 4 mg [ondansetron HCl (PF) 4 mg/2 mL skb injection kiran ution (2 mL)] Route: IVP; Infused Over: 2 mins; Site: left antecubital; 07:05 Follow up: Response: Nausea is decreased; No adverse am7 reaction 06:50 Drug: HYDROmorphone 0.5 mg [hydromorphone 0.5 mg/0.5 mL skb injection syringe (0.5 mL)] Route: IVP; Site: left antecubital; 07:05 Follow up: Response: Pain is decreased; pt is asleep am7 09:50 Drug: Flomax 0.4 mg [tamsulosin 0.4 mg capsule (1 caps)] am7 Route: PO; 10:23 Follow up: Response: No adverse reaction rjh1 09:50 Drug: Potassium Chloride 20 mEq [potassium chloride ER 20 am7 mEq tablet,extended release (1 tabs)] Route: PO; 10:22 Follow up: Response: No adverse reaction rjh1 09:51 Not Given (Patient Refused): Lidocaine Patch 5 % (700 am7 mg/patch) 1 patches Topical once 10:22 Not Given (Patient Refused): cefTRIAXone 2 grams IVPB once; rjh1 order lactate and/or blood cultures if for sepsis Attach to a 100mL NS jimenez bag. Run over 30 minutes. 10:23 Not Given (Patient Refused): NS 0.9% 1000 ml IV at 500 rjh1 mL/hr once Intake: 06:50 IV: 100ml; Total: 100ml. skb 07:05 IV: 100ml; Total: 200ml. am7 07:48 IV: 1000ml; Total: 1200ml. am7 Outcome: 10:24 Patient verbalized understanding of disposition rjh1 instructions. Patient has no functional deficits. 10:24 The patient left against medical advice. after the AMA form was signed. An attempt was made to encourage patient to stay. Patient refused to stay. Risks of not returning to the ED were explained to the patient. The patient was informed that they could return at any time. 10:24 Condition: stable 10:24 Discharge instructions given to patient, Prescriptions given X 2. 10:24 Vitals are Complete in accordance with Emergency Department Policy. 10:31 Patient left the ED. edv 12/12 09:12 24 hour call back attempted, no answer am7 Signatures: Nickolas Kent, RN RN edv Missael Saldana DO DO rc3 Anali Pelayo RN RN skb Quinn, Adam, MD MD aaLashae Faye RN RN rjh1 Nicole Monteiro Amanda, RN RN am7 Corrections: (The following items were deleted from the chart) 12/11 10:00 09:51 This RN entered patients room to given PO and IV am7 medications. Pt stating she does not want to stay for IV antibiotics and wants to leave. She states she "will just walk out". MD Saldana updated. Pt agreeable to takign Flomax and PO potassium. Pt refused Lidocaine patch. am7 Name Value Range Interpretation Code Description Data [facility](s) Supporting Document(s) ID Date Data Source [id number] 12/16/2020 09:13:00 AM EDT [facility] 3 hour post Lactic if elevated? Y Name Value Range Interpretation Code Description Data [facility] rce(s) Supporting Document(s) Blood Culture-Venous [facility] ID Date Data Source [id number] 12/16/2020 09:13:00 AM EDT [facility] 3 hour post Lactic if elevated? Y Name Value Range Interpretation Code Description Data Jammie rce(s) Supporting Document(s) Blood Culture-Venous [facility] ID Date Data Source [id number] 12/13/2020 09:27:00 AM EDT [facility] STREP MITIS/ORALIS (VIRIDANS)SCT>100,000 /mL Name Value Range Interpretation Code Description Data Jammie rce(s) Supporting Document(s) ID Date Data Source [id number] 12/13/2020 09:27:00 AM EDT [facility] STREP MITIS/ORALIS (VIRIDANS)SCT>100,000 /mL Name Value Range Interpretation Code Description Data Jammie rce(s) Supporting Document(s) Vancomycin Susceptible. Indicates for microbiol ogy susceptibilities only. [facility] Levofloxacin Susceptible. Indicates for m icrobiology susceptibilities only. [facility] Linezolid Susceptible. Indicates for microbiol ogy susceptibilities only. [facility] Penicillin-G Susceptible. Indicates for m icrobiology susceptibilities only. [facility] ID Date Data Source [id number] 12/12/2020 04:50:00 PM EDT [facility] Name Value Range Interpretation Code Description Data Jammie rce(s) Supporting Document(s) Chlamydia,Urine Negative Normal (applies to non-numeric results) [facility] GC Urine Negative Normal (applies to non-numeric resul ts) [facility] Methodology: Second generation nucleic a randa amplification. ID Date Data Source [id number] 12/11/2020 08:55:00 AM EDT [facility] Name Value Range Interpretation Code Description Data Jammie rce(s) Supporting Document(s) WBC,URINE 0-10 [facility] RBC,Urine 0-2 [facility] Hyaline Casts,Ur None Seen Normal (applies to non-numeric results) [facility] Bacteria,Urine None Seen [facility] Epithelial Cell,Ur None-Few Normal (applies to non-numer ic results) [facility] Crystals, Urine None Seen [facility] ID Date Data Source [id number] 12/11/2020 08:55:00 AM EDT [facility] Name Value Range Interpretation Code Description Data Jammie rce(s) Supporting Document(s) Color,Urine Yellow [facility] pital Clarity,Urine Clear [facility] ospital Specific [place],Urine 1.001-1.030 Normal (applies to non- numeric results) [facility] PH,Urine 5.0-8.0 Normal (applies to non-numeric resul ts) [facility] Protein,Urine Negative [facility] ospital Glucose,Urine (UA) Negative Normal (applies to non-numer ic results) [facility] Ketones,Urine 15 mg/dL Negative [facility] ospital Blood,Urine Negative [facility] pital Bilirubin,Urine Negative Normal (applies to non-numeric results) [facility] Urobilinogen,Urine Norm 0.2-1 Normal (applies to non-numer ic results) [facility] Leukocyte Esterase,Urine Negative [facility] Nitrite,Urine Negative [facility] ospital ID Date Data Source [id number] 12/11/2020 08:55:00 AM EDT [facility] Name Value Range Interpretation Code Description Data Jammie rce(s) Supporting Document(s) Urine HCG Negative Normal (applies to non-numeric resul ts) [facility] ID Date Data Source [id number] 12/11/2020 08:57:00 AM EDT [facility] Name: KAROL HAMM : 1995 A ge/Sex: 25F Ordering Provider: Missael Saldana DO Med Rec #: [id number] Reg Status: [facility] Room #: Date of Service: 12/11/20 Report Number: [id number] cc:Paul Colmenares DNP Send Report To: [id number] US/US Transvaginal Reason for exam: R ADNEXAL PAIN FINDINGS: The uterus measures 8.2 x 3.0 x 4.9 cm. Right ovary measures 3.1 x 2.1 x 2.7 cm. Left ovary measures 3.3 x 2.4 x 3.1 cm with a 1.8 x 1.3 cm left ovarian cyst. There is an IUD identified within the uterus and it is in good position. Small follicles otherwise noted in the ovaries. No other significantfindings otherwise identified. IMPRESSION: Functional left ovarian cyst. IUD in good position with no other abnormalities. Fluoroscopy time in seconds: Number of Exposures: Time Portable Image Performed: Contrast Agent in ml: Method of Administration: REPORT SIGNATURE ON FILE Reported By: Ailin Cox MD Electronically signed by: Ailin Cox MD 12/11/20 1102 Dictation Date/Time: 12/11/20 0759 Transcribed Date/Time: 12/11/20 0857 Lab Support Service Tech: DANIELA Name Value Range Interpretation Code Description Data Jammie rce(s) Supporting Document(s) ID Date Data Source [id number] 12/11/2020 07:37:00 AM EDT [facility] Name Value Range Interpretation Code Description Data Jammie rce(s) Supporting Document(s) Beta HCG Screen,Qualitative Negative Normal (appli es to non-numeric results) [facility] ID Date Data Source [id number] 12/11/2020 07:16:00 AM EDT [facility] Name Value Range Interpretation Code Description Data Jammie rce(s) Supporting Document(s) Sodium 140 mmol/L 137-145 Normal (applies to non-numeric resul ts) [facility] Potassium 3.5-5.1 Below low normal [facility] Chloride 109 mmol/L 98-112 Normal (applies to non-numeric resul ts) [facility] Carbon Dioxide CO2 22.0-33.0 Normal (applies to non-numer ic results) [facility] Anion Gap 4.0-11.0 Normal (applies to non-numeric resul ts) [facility] BUN 13 mg/dL 7-17 Normal (applies to non-numeric resul ts) [facility] Creatinine 0.70-1.20 Normal (applies to non-numeric resul ts) [facility] GFR >60 Normal (applies to non-numeric results) [facility] Result based on MDRD formula. Glucose Level 127 mg/dL 74-99 Above high normal [facility] The reference range is only applicable w hen fasting. Calcium-Uncorrected 8.4-10.2 Above high normal [facility] Corrected Calcium 8.4-10.2 Above high normal [facility] Bilirubin,Total 0.2-1.3 Normal (applies to non-numeric results) [facility] SGOT(AST) 12 U/L 14-36 Below low normal [facility] SGPT(ALT) 21 U/L 9-52 Normal (applies to non-numeric resul ts) [facility] Alkaline Phosphatase 80 U/L 38-126 Normal (applies to non-num damian results) [facility] can increase Alkaline Phosp le vels up to 2 times the normal adult value. Normal values for children and adolescents are 2 to 3 times the normal adult value. Total Protein 6.3-8.2 Normal (applies to non-numeric re sults) [facility] Albumin 3.5-5.0 Normal (applies to non-numeric resul ts) [facility] ID Date Data Source [id number] 12/11/2020 07:16:00 AM EDT [facility] Name Value Range Interpretation Code Description Data Jammie rce(s) Supporting Document(s) C-Reactive Protein,Wide Range <3.00 Above high normal [facility] ID Date Data Source [id number] 12/11/2020 07:16:00 AM EDT [facility] Name Value Range Interpretation Code Description Data Jammie rce(s) Supporting Document(s) Magnesium 1.80-2.40 Normal (applies to non-numeric resul ts) [facility] ID Date Data Source [id number] 12/11/2020 07:16:00 AM EDT [facility] Name Value Range Interpretation Code Description Data Jammie rce(s) Supporting Document(s) Lipase 82 U/L 73-393 Normal (applies to non-numeric resul ts) [facility] ID Date Data Source [id number] 12/11/2020 07:08:00 AM EDT [facility] 3 hour post Lactic if elevated? Y Name Value Range Interpretation Code Description Data Jammie rce(s) Supporting Document(s) Lactic Acid 0.4-2.0 Normal (applies to non-numeric resu lts) [facility] ID Date Data Source [id number] 12/11/2020 06:56:00 AM EDT [facility] Name Value Range Interpretation Code Description Data Jammie rce(s) Supporting Document(s) White Blood Count 4.8-10.8 Above high normal [facility] Red Blood Count 3.68-5.22 Normal (applies to non-numeric results) [facility] Hemoglobin 11.2-15.7 Normal (applies to non-numeric resul ts) [facility] Hematocrit 34.1-44.9 Normal (applies to non-numeric resul ts) [facility] Mean Corpuscular Volume 81-99 Normal (applies to non- numeric results) [facility] Mean Corpuscular Hemoglobin 27.0-33.0 Normal (appli es to non-numeric results) [facility] Mean Corpuscular HGB Conc 32.0-36.0 Normal (applies to no n-numeric results) [facility] Red Cell Distribution Width 11.5-14.5 Normal (appli es to non-numeric results) [facility] Platelet Count 350 X10 3/uL 130-450 Normal (applies to non-numeric results) [facility] Mean Platelet Volume 9.5-12.7 Normal (applies to non-num damian results) [facility] Imm Grans% (AUTO) 0 % 0-2 Normal (applies to non-numeri c results) [facility] Neutrophils % (AUTO) 88 % 40-75 Above high normal [facility] Lymphocytes % (AUTO) 6 % 21-46 Below low normal [facility] Monocytes % (AUTO) 5 % 5-12 Normal (applies to non-numer ic results) [facility] Eosinophils % (AUTO) 0 % 1-5 Below low normal [facility] Basophils % (AUTO) 0 % 0-1 Normal (applies to non-numer ic results) [facility] Imm Grans# (AUTO) 0.0-0.5 Normal (applies to non-numeri c results) [facility] Neutrophils # (AUTO) 1.5-8.1 Above high normal [facility] Lymphocytes # (AUTO) 1.0-3.1 Normal (applies to non-num damian results) [facility] Monocytes # (AUTO) 0.2-1.3 Normal (applies to non-numer ic results) [facility] Eosinophils# (AUTO) 0.0-0.5 Normal (applies to non-nume jericho results) [facility] Basophils # (AUTO) 0.0-0.1 Normal (applies to non-numer ic results) [facility] ID Date Data Source [id number] 12/11/2020 08:47:00 AM EDT [facility] Name: KAROL HAMM : 1995 A ge/Sex: 25F Ordering Provider: Pako Degroot MD Med Rec #: [id number] Reg Status: [facility] ER Room #: Date of Service: 12/11/20 Report Number: [id number] cc:Paul Colmenares DNP Send Report To: [id number] CT/CT Abdomen & Pelvis w Con Reason for exam: RIGHT FLANK RADIATING TO RLQ;ABDOMINAL PAIN FINDINGS: Lung bases show no focal infiltrate or consolidation. Heart appears unremarkable. A hiatal hernia is identified. Liver, gallbladder, spleen, adrenal glands, pancreas all appear unremarkable. The right kidney appears unremarkable. The left kidney demonstrates moderate tosevere hydronephrosis secondary to a calculus at the distal right ureter, measuring approximately 5 mm. Multiple small nonobstructive calculi are identified in the right kidney. Largest measures approximately 3 mm. The appendix is not distinctly visualized. An IUD is identified in the pelvis. No free fluid is identified in the pelvis. Osseous structures appear unremarkable. IMPRESSION: Severe hydronephrosis on the right. 5 mm distal right ureteral calculus. Multiple tiny calculi in the right kidney. Examination is otherwise unremarkable. REPORT DICTATED BY AILIN DUONG, REVIEWED AND SIGNED BY DR. COX. While performing the above CT exam, the following dose reduction techniques wereused: *Automated exposure control *Adjustment of the mA and/or kV according to patient size *Use of iterative re construction technique CT Dose in mSv: 2.669 Contrast Agent in ml: Isovue 300 100 Method of Administration: Intraveneous REPORT SIGNATURE ON FILE Reported By: Ailin Cox MD Electronically signed by: Ailin Cox MD 12/11/20 1102 Dictation Date/Time: 12/11/20 0817 Transcribed Date/Time: 12/11/20 0847 Lab Support Service Tech: SHANE Name Value Range Interpretation Code Description Data Jammie rce(s) Supporting Document(s) ID Date Data Source [id number] 11/14/2020 01:11:00 AM EDT [facility] [facility]. PATIENT HISTORY:fell hit head (Hx)EXAM: CT Head Without IV contrast.CLINICAL HISTORY: Fell hit headTECHNIQUE: Axial computed tomography images of the head/brain withoutintravenous contrast. All CT scans at this facility use dose modulation,iterative reconstruction, and/or weight-based dosing when appropriate toreduce radiation dose to as low as reasonably achievable.COMPARISON: None provided.FINDINGS:BRAIN: No evidence of acute hemorrhage. No mass lesion. No CT evidencefor acute territorial infarct. No midline shift or extra- axialcollections.VENTRICLES: No hydrocephalus.ORBITS: The orbits are unrema rkable.SINUSES AND MASTOIDS: The paranasal sinuses and mastoid air cells areclear.BONES: No fracture.SOFT TISSUES: Unremarkable.ImpressionNo acute intracranial abnormality.Electronically signed on November 14, 2020 1:09:36 AM EDT by:Parisa Hendrix, [place] Board of RadiologyNOTE: For CT examinations, dose reduction was performed utilizing CAREdose with automated adjustment of the kV and MAS according to patientsize, interactive reconstruction, automated exposure control, as well asadaptive dose shielding.Dose length product for this study was: 464.40 mGy-cmDictated on 11/14/20 0111 by [employer] NighthawkTranscribed on 11/14/20 1006 by Jeffy Rivera by [employer] on 11/14/20 1009Sign by: [facility] [employer] Name Value Range Interpretation Code Description Data Jammie rce(s) Supporting Document(s) ID Date Data Source [id number] 11/14/2020 02:11:00 AM EDT [facility]. PATIENT HISTORY:fell hit head (Hx)EXAM: CT Cervical Spine Without IV contrast.CLINICAL HISTORY: Fell hit headTECHNIQUE: Axial computed tomography images of the cervical spine withoutintravenous contrast. Sagittal and coronal reformatted images weregenerated. / All CT scans at this facility use dose modulation, iterativereconstruction, and/or weight-based dosing when appropriate to reduceradiation dose to as low as reasonably achievable.COMPARISON: None provided.FINDINGS:ALIGNMENT: Bony alignment is anatomic.DEGENERATIVE CHANGES: No significant canal stenosis or neural foraminalnarrowing evident.SOFT TISSUES: The prevertebral soft tissues are within normal limits.BONES: No acute fracture or aggressive appearing osseous lesion.ImpressionNo acute cervical spine abnormality.Electronically signed on November 14, 2020 2:11:46 AM EDT by:Parisa Hendrix, [place] Board of RadiologyNOTE: For CT examinations, dose reduction was performed utilizing CAREdose with automated adjustment of the kV and MAS according to patientsize, interactive reconstruction, automated exposure control, as well asadaptive dose shielding.Dose length product for this study was: 259.20 mGy-cmDictated on 11/14/20 0211 by [employer] - [employer] NighthawkTranscribed on 11/14/20 1004 by MiguelJeffy by [employer] on 11/14/20 1009Sign by: [facility] [employer] Name Value Range Interpretation Code Description Data Jammie rce(s) Supporting Document(s) ID Date Data Source [id number] 04/09/2020 11:17:00 AM EDT [facility] Name: KAROL HAMM : 1995 A ge/Sex: 25F Ordering Provider: Paul Colmenares DNP Med Rec #: [id number] Reg Status: [facility] REF Room #: Date of Service: 04/08/20 Report Number: [id number] cc:Paul Colmenares DNP Send Report To: [id number] XRP/XR Knee Rt 2 views Reason for exam: ACUTE PAIN OF RT KNEE Comparison: None. FINDINGS: No fracture or malalignment. Joint spaces of the right knee are preserved. No soft tissue abnormality. IMPRESSION: Negative right knee. Fluoroscopy time in seconds: 0 Number of Exposures: Time Portable Image Performed: Contrast Agent in ml: Method of Administration: REPORT SIGNATURE ON FILE Reported By: Edward Mcgraw MD <Electronically signed by Edward Mcgraw MD> 04/10/20 1213 Dictation Date/Time: 04/09/20 0805 Transcribed Date/Time: 1117 Lab Support Service Tech: DANIELA Name Value Range Interpretation Code Description Data Jammie rce(s) Supporting Document(s) ID Date Data Source [id number] 03/30/2020 08:25:00 AM EDT [facility] RIGHT KNEE, 4 VIEWSInjury.There is noah l alignment and position of the bones of the knee. Noevidence for a joint effusion is noted. No fracture or dislocation isidentified.IMPRESSION: NO RADIOGRAPHIC ABNORMALITIES IDENTIFIED IN THE KNEE.Dictated on 03/30/20 0825 by Merlin Mejias, JEFFranscribed on 04/02/20 1214 by Rosalinda Field MSign by Merlin Mejias, DO on 04/03/20 1018Sign by: Merlin Mejias, Name Value Range Interpretation Code Description Data Jammie rce(s) Supporting Document(s) ID Date Data Source [id number] 03/12/2020 07:56:00 PM EDT [facility]. LEFT FOOTComparison: 09/27/12Findings: N ormal bone mineral density.No radiographic evidence of acute fracture or dislocation.No significant soft tissue edema.The joint spaces are relatively maintained.No radiopaque foreign body.IMPRESSION: UNREMARKABLE LEFT FOOT RADIOGRAPH.Dictated on 03/12/201955 by Angeles Laguerre M.D.Transcribed on 03/13/20 1129 by Jeffy Rivera by Angeles Laguerre M.D. on 03/15/20 0918Sign by: Angeles Laguerre M.D. Name Value Range Interpretation Code Description Data Jammie rce(s) Supporting Document(s) Procedure Social History No Information
--- OUTSIDE RECORDS SUMMARY | 2021-04-11 22:30 | CCD | Continuity of Care Document ---
Author Author [facility] Organization [facility] [place] [address] Care Team Providers Care Sheet Metal Shop Supervisor Name Role Phone NONE Unavailable Unavailable Insurance Providers Payer Name Policy Number Subscriber Name Relationship [employer] [id number] KAROL NUNO [employer] Advance Directives Directive Response Recorded Date/Time Existing Advanced Directive: N 03/27/21 1: 29am WHO HAS POWER OF SLATE ROOFER? 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 Episode of heavy vaginal bleeding Unknown 02/25/19 Active Non-reassuring cardiotocographic tracing Unknown 0 02/25/19 Active Medications Past Home Medications Medication Directions Ordered Status Docusate Sodium (Colace) 100 Mg Capsule Capsule, 100 Mg Oral Twice Daily 10/29/18 Discontinued Ergocalciferol (Vitamin D2) (Vitamin D2 50,000 Unit Capsule) 50,000 Unit Capsule Capsule, 50,000Units Oral Once a Week 10/29/18 Discontinued Ferrous Sulfate (Iron) 325 Mg Tablet Tablet, 325 Mg Oral Thr ee Times a Day 02/19/19 Discontinued Ferrous Sulfate (Iron) 325 Mg Tablet Tablet, 325 Mg Oral Twice D aily 10/29/18 Discontinued Social History Problem Response Recorded Date Alcohol use= DENIES 02/25/19 Hospital Discharge Instructions No hospital discharge instructions. Plan of Care Discharge Date 03/27/21 Disposition HOME/SELF CARE Prescriptions See Medications Section Functional Status No functional status results. Allergies, Adverse Reactions, Alerts Allergen Type Severity Reaction Status Last Updated NSAIDS (Non-Steroidal Anti-Inflamma AdvReac Unknown BLEED ING TO IBUPROFEN Active 02/25/19 No Known Drug Intolerances Allergy Unknown Active 04/11/19 ibuprofen AdvReac Unknown BLEEDING Active 02/25/19 Immunizations No Known History of Immunizations. Vital Signs No Known Vital Signs Results. Results No known relevant diagnostic tests, laboratory data and/or discharge summary. Procedures Procedure Status Date Provider(s) RPR S/N/AX/GEN/TRNK2.6-7.5CM Completed 10/09/20 Harry Barriga M.D. RPR S/N/AX/GEN/TRNK2.6-7.5CM Completed 10/09/20 Harry Barriga M.D. EMERGENCY DEPT VISIT Completed 10/09/20 Melissa Alvarado M.D. EMERGENCY DEPT VISIT Completed 10/09/20 Melissa Alvarado M.D. EMERGENCY DEPT VISIT Completed 11/13/20 Elio Szymanski M.D. EMERGENCY DEPT VISIT Completed 11/13/20 Elio Szymanski M.D. EMERGENCY DEPT VISIT Completed 02/01/21 Gayathri Negron M.D. EMERGENCY DEPT VISIT Completed 02/01/21 Gayathri Negron M.D. Encounters Encounter Location Arrival/Admit Date [facility] 03/27/21 2:52am Shaquille Negron M.D. Departed [facility] 03/12/21 7:21pm 03/12/21 9:55pm [facility] 5:27am 02/01/21 6:27am Shaquille Negron M.D. Departed [facility] 11/13/20 10:57pm 11/14/20 2:30a [facility] 10:45pm 10/09/20 11:30 pm Harry Alvarado M.D.
--- OUTSIDE RECORDS SUMMARY | 2021-04-11 22:30 | CCD | Continuity of Care Document ---
Author Author [facility] Organization [facility] [place] [address] Care Team Providers Care It Application Development Manager Name Role Phone NONE Unavailable Unavailable Insurance Providers Payer Name Policy Number Subscriber Name Relationship [employer] [id number] KAROL N[employer]O [employer] Advance Directives Directive Response Recorded Date/Time Existing Advanced Directive: N 02/01/21 5: 27am WHO HAS POWER OF DESKTOP SUPPORT TECHNICIAN? N 02/01/21 5:27 am Chief Complaint and Reason for Visit Reason for Visit RIGHT KNEE INJURY Problems Active Medical Problems Problem Onset Date [...] discharge instructions. Plan of Care Discharge Date 02/01/21 Disposition HOME/SELF CARE Prescriptions See Medications Section [...] DEPT VISIT Completed 11/13/20 Elio Szymanski M.D. Encounters Encounter Location Arrival/Admit Date [facility] 5[facility] 02/01/21 6:27am Shaquille Negron M.D. Departed [facility] 11/13/20 10:57pm 11/14/20 2:30a Elio Roa M.D. Departed [facility] 10/09/20 10:45pm 10/09/20 11:30 pm Harry Alvarado M.D.
--- OUTSIDE RECORDS SUMMARY | 2021-04-11 22:30 | CCD | Continuity of Care Document ---
Author Author [facility] Organization [facility] Address [place] [address] Care Team Providers Care Rn Rehabilitation Name Role Phone NONE Unavailable Unavailable Insurance Providers Payer Name Policy Number Subscriber Name Relationship [employer] [id number] KAROL NUNO [employer] Advance Directives Directive Response Recorded Date/Time Existing Advanced Directive: N 03/12/21 7: 21pm WHO HAS POWER OF ICT SALES REPRESENTATIVE? N 03/12/21 7:21 pm Chief Complaint and Reason for Visit Reason for Visit HAND INJURY-RIGHT Problems Active Medical Problems Problem Onset Date [...] discharge instructions. Plan of Care Discharge Date 03/12/21 Disposition HOME/SELF CARE Prescriptions See Medications Section [...] Date [facility] 03/12/21 9:55pm [facility] 5:27am 02/01/21 6:27am Shaquille Negron M.D. [facility] 11/13/20 10:57pm 11/14/20 2:30a m [facility] 10:45pm 10/09/20 11:30 pm Harry Alvarado M.D.
--- NOTE | 2021-04-12 00:48 | REPVR ---
PROCEDURE INFORMATION: Exam: XR Right Foot Exam date and time: 04/11/2021 11:11 PM Age: 26 years old Clinical indication: Pain; Foot; Right; Additional info: Dropped a crib springs onto right foot TECHNIQUE: Imaging protocol: XR Right foot. Views: 3 or more views. COMPARISON: No relevant prior studies available. FINDINGS: Bones/joints: Normal. Soft tissues: Normal. IMPRESSION: No acute findings. Electronically signed by: Paul Chahal On 04/12/2021 00:48:28 AM
--- OUTSIDE RECORDS SUMMARY | 2021-04-12 01:57 | CCD ---
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 Normal (appli es to non-numeric results) [facility] Mean Corpuscular HGB Conc 32.0-36.0 Normal (applies to no n-numeric results) [facility] Red Cell Distribution Width 11.5-14.5 Normal (appli es to non-numeric results) [facility] Platelet Count 350 X10 3/uL 130-450 Normal (applies to non-numeric results) [facility] Mean Platelet Volume 9.5-12.7 Normal (applies to non-num damian results) [facility] Imm Grans% (AUTO) 0 % 0-2 Normal (applies to non-numeri c results) [facility] Neutrophils % (AUTO) 88 % 40-75 Above high normal [facility] Lymphocytes % (AUTO) 6 % 21-46 Below low normal [facility] Monocytes % (AUTO) 5 % 5-12 Normal (applies to non-numer ic results) [facility] Eosinophils % (AUTO) 0 % 1-5 Below low normal [facility] Basophils % (AUTO) 0 % 0-1 Normal (applies to non-numer ic results) [facility] Imm Grans# (AUTO) 0.0-0.5 Normal (applies to non-numeri c results) [facility] Neutrophils # (AUTO) 1.5-8.1 Above high normal [facility] Lymphocytes # (AUTO) 1.0-3.1 Normal (applies to non-num damian results) [facility] Monocytes # (AUTO) 0.2-1.3 Normal (applies to non-numer ic results) [facility] Eosinophils# (AUTO) 0.0-0.5 Normal (applies to non-nume jer[place]o results) [facility] Basophils # (AUTO) 0.0-0.1 Normal (applies to non-numer ic results) [facility] ID Date Data Source [id number] 12/11/2020 08:47:00 AM EDT [facility] Name: KAROL HAMM : 1995 A ge/Sex: 25F Ordering Provider: Pako Degroot MD Med Rec #: [id number] Reg Status: [facility] ER Room #: Date of Service: 12/11/20 Report Number: [id number] cc:Paul Colmenares DNP Send Report To: [id number] CT/CT Abdomen & Pelvis w Con Reason [...] By: Ailin Cox MD Electronically signed by: Aliin Cox MD 12/11/20 1102 Dictation Date/Time: 12/11/20 0817 Transcribed Date/Time: 12/11/20 0847 Print Line Inspector: SHANE Name Value Range Interpretation Code Description Data Jammie rce(s) Supporting Document(s) ID Date Data Source [id number] 11/14/2020 01:11:00 AM EDT [email or web address] [facility]. PATIENT HISTORY:fell hit head (Hx)EXAM: CT Head [...] 14, 2020 1:09:36 AM EDT by:Parisa Hendrix, [place] Board of RadiologyNOTE: For CT examinations, dose reduction was performed utilizing CAREd[employer] with automated adjustment of the kV and MAS according to patientsize, interactive reconstruction, automated exposure control, as well asadaptive dose shielding.Dose length product for this study was: 464.40 mGy-cmDictated on 11/14/20 0111 by [email or web address] NighthawkTranscribed on 11/14/20 1006 by Jeffy Rivera by [email or web address] on 11/14/20 1009Sign by: DUHEM [employer] Name Value Range Interpretation Code Description Data Jammie rce(s) Supporting Document(s) ID Date Data Source [id number] 11/14/2020 02:11:00 AM EDT [employer] [employer]. PATIENT HISTORY:fell hit head (Hx)EXAM: CT Cervical [...] 14, 2020 2:11:46 AM EDT by:Parisa Hendrix, [place] Board of RadiologyNOTE: For CT examinations, dose reduction was performed utilizing CAREdose with automated adjustment of the kV and MAS according to patientsize, interactive reconstruction, automated exposure control, as well asadaptive dose shielding.Dose length product for this study was: 259.20 mGy-cmDictated on 11/14/20 0211 by [email or web address] - [employer] NighthawkTranscribed on 11/14/20 1004 by MiguelJeffy by [email or web address] on 11/14/20 1009Sign by: [email or web address] - [employer] Name Value Range Interpretation Code Description Data Jammie rce(s) Supporting Document(s) ID Date Data Source [id number] 04/09/2020 11:17:00 AM EDT [facility] Name: KAROL HAMM : 1995 A ge/Sex: 25F Ordering Provider: Paul Colmenares DNP Med Rec #: [id number] Reg Status: [facility] REF Room #: Date of Service: 04/08/20 Report Number: [id number] cc:Paul Colmenares DNP Send Report To: [id number] XRP/XR Knee Rt 2 views Reason for [...] Dictation Date/Time: 04/09/20 0805 Transcribed Date/Time: 1117 Print Line Inspector: DANIELA Name Value Range Interpretation Code Description Data Jammie rce(s) Supporting Document(s) ID Date Data Source [id number] 03/30/2020 08:25:00 AM EDT [facility] RIGHT KNEE, 4 VIEWSInjury.There [...] rce(s) Supporting Document(s) ID Date Data Source [id number] 03/12/2020 07:56:00 PM EDT [employer] [employer]. LEFT FOOTComparison: 09/27/12Findings: N ormal bone mineral [...]
== END 2021-04-12 01:50 | disposition left against medical advice (07) ==
LOC: M ED 22:23
DX: Z53.21 Procedure and treatment not carried out due to patient leaving prior to being seen by health care provider (principal)

== ENCOUNTER 2021-04-24 18:15 | Emergency (ER) | payer OTHER ==
[~2021-04-24] VITALS: Ht 152.4 cm; Wt 46.5 kg
[2021-04-24 18:15] VITALS: BP 138/79
--- OUTSIDE RECORDS SUMMARY | 2021-04-24 18:20 | CCD ---
Author Author [facility] Organization [facility] Address Unknown Phone Unavailable Care Team Providers Care Telephone Order Dispatcher Name Role Phone Elio Szymanski MD Unavailable [...] Unavailable Prionas, Noah Unavailable Unavailable Prionas, Noah MD Unavailable Unavailable Prionas, Noah MD Unavailable Unavailable Prionas, Noah Unavailable Unavailable Prionas, Noah Unavailable Unavailable Prionas, Noah Unavailable Unavailable Prionas, Noah Unavailable Unavailable Prionas, Noah Unavailable Unavailable Prionas, Noah Unavailable Unavailable Prionas, Noah Unavailable Unavailable Prionas, Noah Unavailable Unavailable Prionas, Noah Unavailable Unavailable Cindy Degroot MD Unavailable Unavailable Zane, Cindy Min MD Unavailable Unavailable Cindy Degroot MD Unavailable Unavailable UnkenholCharlene sellers MD Unavailable Unavailable UnkenCharlene watts MD Unavailable Unavailable UnkenholCharlene sellers MD Unavailable Unavailable UnkenholCharlene sellers MD Unavailable Unavailable UnkenholCharlene sellers MD Unavailable Unavailable Charlene Negron MD Unavailable Unavailable Emani Palacios M.D. Unavailable Unavailable PRASHANT, [place] INGRAM OUTSIDE EVENT SALES SPECIALIST, BC Unavailable Unavailable PRASHANTGeorgia OUTSIDE EVENT SALES SPECIALIST, BC Unavailable Unavailable PRASHANTGeorgia OUTSIDE EVENT SALES SPECIALIST, BC Unavailable Unavailable PRASHANTGeorgia OUTSIDE EVENT SALES SPECIALIST, BC Unavailable Unavailable PRASHANTGeorgia OUTSIDE EVENT SALES SPECIALIST, BC Unavailable Unavailable PRASHANT, [place] INGRAM OUTSIDE EVENT SALES SPECIALIST, BC Unavailable Unavailable PRASHANT, [place] INGRAM OUTSIDE EVENT SALES SPECIALIST, BC Unavailable Unavailable PRASHANTGeorgia OUTSIDE EVENT SALES SPECIALIST, BC Unavailable Unavailable PRASHANT, [place] INGRAM OUTSIDE EVENT SALES SPECIALIST, BC Unavailable Unavailable PRASHANT, [place] INGRAM OUTSIDE EVENT SALES SPECIALIST, BC Unavailable Unavailable PRASHANT, [place] INGRAM OUTSIDE EVENT SALES SPECIALIST, BC Unavailable Unavailable PRASHANT, [place] INGRAM OUTSIDE EVENT SALES SPECIALIST, BC Unavailable Unavailable PRASHANTGeorgia OUTSIDE EVENT SALES SPECIALIST, BC Unavailable Unavailable PRASHANTGeorgia OUTSIDE EVENT SALES SPECIALIST, BC Unavailable Unavailable PRASHANTGeorgia OUTSIDE EVENT SALES SPECIALIST, BC Unavailable Unavailable PRASHANT, [place] INGRAM OUTSIDE EVENT SALES SPECIALIST, BC Unavailable Unavailable PRASHANT, [place] INGRAM OUTSIDE EVENT SALES SPECIALIST, BC Unavailable Unavailable PRASHANT, [place] INGRAM OUTSIDE EVENT SALES SPECIALIST, BC Unavailable Unavailable PRASHANT, [place] INGRAM OUTSIDE EVENT SALES SPECIALIST, BC Unavailable Unavailable PRASHANT, [place] INGRAM OUTSIDE EVENT SALES SPECIALIST, BC Unavailable Unavailable PRASHANT, CHARLY OUTSIDE EVENT SALES SPECIALIST, BC Unavailable Unavailable PRASHANT, CHARLY OUTSIDE EVENT SALES SPECIALIST, BC Unavailable Unavailable PRASHANT, CHARLY OUTSIDE EVENT SALES SPECIALIST, BC Unavailable Unavailable PRASHANT, CHARLY OUTSIDE EVENT SALES SPECIALIST, BC Unavailable Unavailable PRASHANT, CHARLY OUTSIDE EVENT SALES SPECIALIST, BC Unavailable Unavailable PRASHANT, CHARLY OUTSIDE EVENT SALES SPECIALIST, BC Unavailable Unavailable PRASHANT, CHARYL OUTSIDE EVENT SALES SPECIALIST, BC Unavailable Unavailable PRASHANT, CHARLY OUTSIDE EVENT SALES SPECIALIST, BC Unavailable Unavailable PRASHANT, [place] INGRAM OUTSIDE EVENT SALES SPECIALIST, BC Unavailable Unavailable PRASHANT, CHARLY OUTSIDE EVENT SALES SPECIALIST, BC Unavailable Unavailable PRASHANT, [place] INGRAM OUTSIDE EVENT SALES SPECIALIST, BC Unavailable Unavailable PRASHANT, [place] INGRAM OUTSIDE EVENT SALES SPECIALIST, BC Unavailable Unavailable PRASHANT, CHARLY OUTSIDE EVENT SALES SPECIALIST, BC Unavailable Unavailable Re-disclosure Warning The records [...] is protected by Article 27-F of the [facility] Public Health law. If you continue you may have access to information: Regarding HIV / AIDS; Provided by facilities licensed or operated by the [facility] Office of Mental Health; or Provided by the [facility] Office for People With Developmental Disabilities. If such information is present, then the following [facility] mandated warning applies: This information has been [...] law may result in a fine or fci sentence or both. A general authorization for the release of medical or other information is NOT sufficient authorization for further disc losure. Encounters Encounter Providers Location Date Indications Data Source(s ) Emergency Attender: Shaquille Negron MD SURG-ER 03/27/2021 01:29:00 AM EDT [facility] Patient discharged. Emergency Attender: Elio Szymanski MD SURG-ER 021 07:21:00 PM EDT - 03/12/2021 09:55:00 PM EDT [facility] Emergency Attender: Elio Szymanski MD SURG-ER 03/12/2021 07:21:00 PM EDT [facility] Patient discharged. Emergency Attender: Shaquille Negron MD SURG-ER 01/21 05:27:00 AM EDT - 02/01/2021 06:27:00 AM EDT [facility]. Emergency Attender: Shaquille Negron MD SURG-ER 02/01/2021 05:27:00 AM EDT [facility] Patient discharged. Emergency Attender: Pako Degroot MD CPSCAORT-ED 12/12/19 06:23:00 AM EDT - 12/11/2020 10:20:00 AM EDT BACK PAIN [facility] BACK PAIN Patient discharged. Emergency Attender: Elio Szymanski MD SURG-ER 021 10:57:00 PM EDT - 11/14/2020 02:30:00 AM EDT [facility]. Emergency Attender: Elio Szymanski MD SURG-ER 11/13/2020 10:57:00 PM EDT [facility] Patient discharged. Emergency SURG-ER 10/09/2020 10:45:00 PM EDT [facility] Patient discharged. [facility] 04/25/2020 01:00:00 PM EST [facility] Outpatient Attender: MATEO DEY-IMAPD 04/08/2020 06:12:00 PM EDT - 04/08/2020 06:13:00 PM EDT M25.561 [facility] M25.561 Patient discharged. Emergency SURG-ER 04/04/2020 01:33:00 AM EDT [facility]. Patient discharged. Emergency Attender: Veronica Palacios M.D. SURG-ER 1 06:07:00 PM EDT - 03/30/2020 10:41:00 PM EDT [facility]. Patient discharged. Emergency Attender: GRAY GONZALEZ MDReferrer: Noah atkinson MD SURG-ER 03/12/2020 06:56:00 PM EDT - 03/12/2020 08:18:00 PM EDT [facility]. Patient discharged. Emergency Attender: Shaquille Negron MD SURG-ER 07/2019 01:15:00 AM EDT - 12/23/2019 04:00:00 AM EDT [facility]. Patient discharged. Medications Medication Brand Name Start [...] type / Coverage type Policy ID Covered libertarian ID Covered libertarian's relationship to camara Policy Camara Plan Information [employer]AN [id number] [facility] [id number] FA [id number] [facility] [id number] FA [id number] [facility] [id number] FA [id number] [employer] I [id number] Self [id number] [employer] CARE [id number] S [id number] [employer] MEDICAID MANAGED CARE [id number] SP [id number] SELF PAY UNAVAILABLE SP UNAVAILA BLE MEDICAID [id number] Unemployed [id number] [employer] CARE UTAH [id number] Unemployed [id number] [employer] MEDICAID MANAGED CARE [id number] SP [id number] SELF-PAY UNAVAILABLE UNAVAILA BLE AUTO NO FAULT [id number] S [id number] [employer] CARE ME W [id number] S [id number] MEDICAID GME W [id number] S [id number] Q [employer] [id number] MEDICAID GME W UNAVAILABLE S UNAVA ILABLE [facility] [id number] Unemployed [id number] SELF PAY [id number] SP [id number] SELF PAY ONLY [id number] SP [id number] [facility] MEDICAID [id number] SP [id number] Q SELF PAY Unemployed [employer] MEDICAID MANAGED CARE [id number] Problems, Conditions, and Diagnoses Code Display Name Description Problem Type Effective Dates Data Source(s) Z53.20 Procedure and treatment not carried out because of patient's decision for unspecified reasons PROC/TRTMT NOT CRD OUT BEC PT DECISION FOR UNSP REASON S Diagnosis 12/11/2020 06:23:00 AM EDT [facility] D72.829 Elevated white blood cell count, unspeci fied ELEVATED WHITE BLOOD CELL COUNT, UNSPECIFIED Diagnosis 12/11/2020 06:23:00 AM EDT [facility] N13.9 Obstructive and reflux uropathy, unspeci fied OBSTRUCTIVE AND REFLUX UROPATHY, UNSPECIFIED Diagnosis 12/11/2020 06:23:00 AM EDT [facility] N39.0 Urinary tract infection, site not specif ied URINARY TRACT INFECTION, SITE NOT SPECIFIED Diagnosis 12/11/2020 06:23:00 AM [facility] N13.2 Hydronephrosis with renal and ureteral c alculous obstruction HYDRONEPHROSIS WITH RENAL AND URETERAL CALCULOUS OBSTRUCTION Diagnosis 12/11/2020 06:23:00 AM [facility] Z72.0 Tobacco use TOBACCO USE Diagnosis 04/25/2020 01:00:00 PM [facility] M25.561 Pain in right knee PAIN IN RIGHT KNEE Diagnosis 08/2019 01:00:00 PM [facility] Surgeries/Procedures Procedure Description Date Indications Data Source(s) EMERGENCY DEPARTMENT VISIT MODERATE SEVERITY EMERGENCY DEPT VISIT 02/01/2021 12:00:00 AM [facility] EMERGENCY DEPARTMENT VISIT MODERATE SEVERITY EMERGENCY DEPT VISIT 02/01/2021 12:00:00 AM [facility] EMERGENCY DEPARTMENT VISIT MODERATE SEVERITY EMERGENCY DEPT VISIT 02/01/2021 12:00:00 AM EDT [facility] EMERGENCY DEPARTMENT VISIT MODERATE SEVERITY EMERGENCY DEPT VISIT [facility]AGINAL TRANSVAGINAL US NON-OB 12/11/2020 12:00:[address] [facility] [address] ABDOEN & PELVIS W/CONTRAST MATERIAL CT ABD & PELV W/CONTR AST 12/11/2020 12:00:00 AM [facility] Low osmolar contrast material, 300-399 mg/ml iodine co ncentration, per ml Locm 300-399mg/ml iodine,1ml Long 12/11/2020 12:00:00 AM [facility] IADNA NEISSERIA GONORRHOEAE AMPLIFIED PROBE TQ N.GONORRHOEAE DNA AMP PROB 12/11/2020 12:00:00 AM [facility] IADNA CHLAMYDIA TRACHOMATIS AMPLIFIED PROBE TQ CHYLMD TRACH DNA AMP PROBE 12/11/2020 12:00:00 AM [facility] CUL PRSMPTV PTHGNC ORGANISM SCRN W/COLONY ESTIMJ CULTURE SCR EEN ONLY 12/11/2020 12:00:00 AM [facility] CULTURE BACTERIAL BLOOD AEROBIC W/ID ISOLATES BLOOD CULTURE FOR BACTERIA 12/11/2020 12:00:00 AM [facility] SUSCEPTIBLTY STDY ANTIMICRBIAL MICRO/AGAR DILUTJ MICROBE AMADO CEPTIBLE MARY 12/11/2020 12:00:00 AM [facility] URINALYSIS MICROSCOPIC ONLY MICROSCOPIC EXAM OF URINE 2020 12:00:00 AM [facility] BLOOD COUNT COMPLETE AUTO&AUTO DIFRNTL WBC COUNT COMPLETE CB C W/AUTO DIFF WBC 12/11/2020 12:00:00 AM [facility] MAGNESIUM ASSAY OF MAGNESIUM 12/11/2020 12:00:00 AM [facility] GONADOTROPIN CHORIONIC QUALITATIVE CHORIONIC GONADOTROPIN SAY 12/11/2020 12:00:00 AM [facility] URINE TEST VISUAL COLOR CMPRSN METHS URINE PREGNAN CY TEST 12/11/2020 12:00:00 AM [facility] LACTATE ASSAY OF LACTIC ACID 12/11/2020 12:00:00 AM [facility] C-REACTIVE PROTEIN C-REACTIVE PROTEIN 12/11/2020 12:00:00 AM [facility] LIPASE ASSAY OF LIPASE 12/11/2020 12:00:00 AM [facility] COMPREHENSIVE METABOLIC PANEL COMPREHEN METABOLIC PANEL 11/22 12:00:00 AM [facility] Injection, hydromorphone, up to 4 mg 12/11/2020 12:00: 00 AM [facility] Injection, acetaminophen, 10 mg 12/11/2020 12:00:00 AM EDT [facility] Non-covered item or service NON-COVERED ITEM OR SERVICE 11/22 12:00:00 AM [facility] Injection, ceftriaxone sodium, per 250 mg 12/11/2020 1 2:00:00 AM [facility] THERAPEUTIC INJECTION IV PUSH EACH NEW DRUG TX/PRO/DX INJ NE W DRUG ADDON 12/11/2020 12:00:00 AM [facility] IV INFUSION THERAPY/PROPHYLAXIS /DX 1ST TO 1 HR THER/PROPH/D IAG IV INF INIT 12/11/2020 12:00:00 AM [facility] IV INFUSION HYDRATION EACH ADDITIONAL HOUR HYDRATE IV INFUSI ON ADD-ON 12/11/2020 12:00:00 AM [facility] EMERGENCY DEPT VISIT HIGH SEVERITY&THREAT FUNCJ EMERGENCY DE PT VISIT 12/11[facility] MODERATE SEVERITY EMERGENCY DEPT VISIT 11/13/2020 12:00:00 AM EDT [facility] EMERGENCY DEPARTMENT VISIT HIGH/URGENT SEVERITY EMERGENCY DE PT VISIT 11/13/2020 12:00:00 AM EDT [facility]. EMERGENCY DEPARTMENT VISIT MODERATE SEVERITY EMERGENCY DEPT VISIT 11/13/2020 12:00:00 AM EDT [facility] EMERGENCY DEPARTMENT VISIT HIGH/URGENT SEVERITY EMERGENCY DE PT VISIT 11/13/2020 12:00:00 AM EDT [facility] EMERGENCY DEPARTMENT VISIT MODERATE SEVERITY EMERGENCY DEPT VISIT [facility] HIGH/URGENT SEVERITY EMERGENCY DE PT VISIT 11/13/2020 12:00:00 AM EDT [facility] EMERGENCY DEPARTMENT VISIT MODERATE SEVERITY EMERGENCY DEPT VISIT 10/09/2020 12:00:00 AM EDT [facility] EMERGENCY DEPARTMENT VISIT MODERATE SEVERITY EMERGENCY DEPT VISIT 10/09/2020 12:00:00 AM EDT [facility] SMPL REPAIR SCALP/NECK/AX/GENIT/TRUNK 2.6-7.5CM RPR S/N/AX/G EN/TRNK2.6-7.5CM 10/09/2020 12:00:00 AM EDT [facility] SMPL REPAIR SCALP/NECK/AX/GENIT/TRUNK 2.6-7.5CM RPR S/N/AX/G EN/TRNK2.6-7.5CM 10/09/2020 12:00:00 AM EDT [facility] EMERGENCY DEPARTMENT VISIT MODERATE SEVERITY EMERGENCY DEPT VISIT 10/09/2020 12:00:00 AM EDT [facility] EMERGENCY DEPARTMENT VISIT MODERATE SEVERITY EMERGENCY DEPT VISIT 10/09/2020 12:00:00 AM EDT [facility] SMPL REPAIR SCALP/NECK/AX/GENIT/TRUNK 2.6-7.5CM RPR S/N/AX/G EN/TRNK2.6-7.5CM 10/09/2020 12:00:00 AM EDT [facility] SMPL REPAIR SCALP/NECK/AX/GENIT/TRUNK 2.6-7.5CM RPR S/N/AX/G EN/TRNK2.6-7.5CM 10/09/2020 12:00:00 AM EDT [facility] EMERGENCY DEPARTMENT VISIT MODERATE SEVERITY EMERGENCY DEPT VISIT 10/09/2020 12:00:00 AM EDT [facility] EMERGENCY DEPARTMENT VISIT MODERATE SEVERITY EMERGENCY DEPT VISIT 10/09/2020 12:00:00 AM EDT [facility] SMPL REPAIR SCALP/NECK/AX/GENIT/TRUNK 2.6-7.5CM RPR S/N/AX/G EN/TRNK2.6-7.5CM 10/09/2020 12:00:00 AM EDT [facility] SMPL REPAIR SCALP/NECK/AX/GENIT/TRUNK 2.6-7.5CM RPR S/N/AX/G EN/TRNK2.6-7.5CM 10/09/2020 12:00:00 AM EDT [facility] EMERGENCY DEPARTMENT VISIT MODERATE SEVERITY EMERGENCY DEPT VISIT 10/09/2020 12:00:00 AM EDT [facility] EMERGENCY DEPARTMENT VISIT MODERATE SEVERITY EMERGENCY DEPT VISIT 10/09/2020 12:00:00 AM EDT [facility] SMPL REPAIR SCALP/NECK/AX/GENIT/TRUNK 2.6-7.5CM RPR S/N/AX/G EN/TRNK2.6-7.5CM 10/09/2020 12:00:00 AM EDT [facility] SMPL REPAIR SCALP/NECK/AX/GENIT/TRUNK 2.6-7.5CM RPR S/N/AX/G EN/TRNK2.6-7.5CM 10/09/2020 12:00:00 AM EDT [facility] EMERGENCY DEPARTMENT VISIT MODERATE SEVERITY EMERGENCY DEPT VISIT 10/09/2020 12:00:00 AM EDT [facility] EMERGENCY DEPARTMENT VISIT MODERATE SEVERITY EMERGENCY DEPT VISIT 10/09/2020 12:00:00 AM EDT [facility] SMPL REPAIR SCALP/NECK/AX/GENIT/TRUNK 2.6-7.5CM RPR S/N/AX/G EN/TRNK2.6-7.5CM 10/09/2020 12:00:00 AM EDT [facility] SMPL REPAIR SCALP/NECK/AX/GENIT/TRUNK 2.6-7.5CM RPR S/N/AX/G EN/TRNK2.6-7.5CM 10/09/2020 12:00:00 AM EDT [facility] OFFICE OUTPATIENT VISIT 5 MINUTES OFFICE/OUTPATIENT VISIT ES T 04/25/2020 12:00:00 AM [facility] THERAPEUTIC PROPHYLACTIC/DX INJECTION SUBQ/IM THER/PROPH/DIVYA G INJ SC/IM 04/25/2020 12:00:00 AM [facility] EMERGENCY DEPARTMENT VISIT MODERATE SEVERITY EMERGENCY DEPT VISIT 03/12/2020 12:00:00 AM EDT [facility] EMERGENCY DEPARTMENT VISIT MODERATE SEVERITY EMERGENCY DEPT VISIT 03/12/2020 12:00:00 AM EDT [facility]. EMERGENCY DEPARTMENT VISIT MODERATE SEVERITY EMERGENCY DEPT VISIT 03/12/2020 12:00:00 AM EDT [facility] EMERGENCY DEPARTMENT VISIT MODERATE SEVERITY EMERGENCY DEPT VISIT 03/12/2020 12:00:00 AM EDT [facility]. Results ID Date Data Source [id number] 03/12/2021 09:04:[address] [facility]. RIGHT HANDFindings/Impression: There is no fracture or dislocation. Nosignificant degenerative changes. No acute soft tissue abnormality.Dictated on 03/12/214 by Brett Sandoval M.D.Transcribed on 03/13/21 1122 by Jeffy Rivera by Brett Sandoval M.D. on 03/14/21 1156Sign by: Brett Sandoval M.D. Name Value Range Interpretation Code Description Data Jammie rce(s) Supporting Document(s) ID Date Data Source [id number] 02/01/2021 07:13:[address] [facility]. RADIOGRAPH OF THE RIGHT KNEEClinical his tory: [...] rce(s) Supporting Document(s) ID Date Data Source [id number] 12/11/2020 06:23:00 AM EDT [facility] Name: KAROL HAMM [facility] Rec #: [id number] 22 : 1995 Age/Sex: 25F Date of Service: 12/11/20 DISPOSITION SUMMARY Discharge Summary [facility] Name:Karol Hamm Emergency Department Age:25 yrs Sex:Female [...] rce(s) Supporting Document(s) ID Date Data Source [id number] 12/11/2020 06:23:00 AM EDT [facility] Name: KAROL HAMM [facility] Rec #: [id number] 22 : 1995 Age/Sex: 25F Date of Service: 12/11/20 PHYSICIAN CHART Physician Documentation [facility] Name: Karol Hamm Age: 25 yrs Sex: Female : 1995 Arrival Date: 12/11/2020 Time: 06:23 Bed 1 Private MD: None, Primary Care Provider- ED Physician Missael Saldana HPI: 12/11 06:32 This 25 yrs old Female presents to ER via [facility] aaq with complaints of Back Pain. 06:32 Patient [...] Patient's tobacco-smoking history is unknown. Preferred Language: Cape Verdean. ROS: 06:33 Constitutional: A 10 point review [...] for outpatient follow up. 15:37 Data reviewed: [facility] Prescription Monitoring Program rc3 Registry. 12/11 06:31 Order name: Cbc With Auto Differential; Complete Time: 07:00aaq 12/11 07:00 Interpretation: WBC 17.3; RBC 4.41; HGB 13.3; HCT 37.4; MCV aaq 84.8; MCH 30.2; MCHC 35.6; RDW 13.1; PLT 350; MPV 10.7; ImmGran% (AUTO) 0; Neut% (AUTO) 88; Lymph% (AUTO) 6; Hudspeth% (AUTO) 5; Eos% (AUTO) 0; Baso% (AUTO) 0; ImmGran# (AUTO) 0.1; Neut# (AUTO) 15.3; Lymph# (AUTO) 1.1; Hudspeth# (AUTO) 0.9; Eos# (AUTO) <0.03; Baso# (AUTO) 0.0. 12/11 06:31 Order name: COMMET; Complete Time: 07:23 aaq 12/11 07:24 Interpretation: NA 140; K 3.3; CL 109; CO2 27.0; GAP 4.0; rc3 BUN 13; CREAT 0.76; Glom Filtration > 90; GLU 127; CA 10.5; Corrected CA 10.8; T Bili 0.5; SGOT(AST) 12; SGPT(ALT) 21; ALK PHOS 80; TP 6.6; ALB 3.6. 12/11 06:31 Order name: C-Reactive Protein,Wide Range; Complete Time: aaq 07:12/11 07:24 Interpretation: CRP-wr 6.11; Minimal elevation. [facility] 12/11 06:31 Order name: Magnesium; Complete Time: 07:23 aaq 12/11 07:25 Interpretation: MG 1.90. [facility] 12/11 06:31 Order name: Lipase; Complete Time: 07:23 aaq 12/11 07:25 Interpretation: LIP 82. [facility] 12/11 06:31 Order name: UA.; Complete Time: 09:23 aaq 12/11 09:24 Interpretation: Ur Color Mariely; [...] White blood cell count too numerous to rc3 count, RBC 11-20, few epithelial cells, many [...] mL/hr once Disposition Summary: 12/11/20 10[facility] rc3 Diagnosis - [...] DO DO rc3 Anali Pelayo RN RN skPako Garcia MD MD aaq Muldoon, Amanda, RN RN am7 Lashae Parrish RN [email or web address] Corrections: (The following items were deleted from the chart) 06:33 06:32 . aaparish aaparish 08:12 07:26 Straight Cath+ANA ordered. rc3 am7 Name Value Range Interpretation Code Description Data Jammie rce(s) Supporting Document(s) ID Date Data Source [id number] 12/11/2020 06:23:00 AM EDT [facility] Name: KAROL HAMM [facility] Rec #: [id number] 22 : 1995 Age/Sex: 25F Date of Service: 12/11/20 NURSE CHART Nurse's Notes [facility] Name: Karol Hamm Age: 25 yrs Sex: Female : 1995 Arrival Date: 12/11/2020 Time: 06:23 Bed 1 Private MD: None, Primary Care Provider- Diagnosis: 5 mm distal right ureteral stone with hydroureter and hydronephrosis;Urinary tract infection in the setting of obstructive uropathy Presentation: 12/11 06:27 Transition of care: patient was not received from another [facility] setting of care. Presenting complaint: Patient states - Right lower back pain started abruptly at midnight, now radiating to RLQ. Have you travelled in the last 30 days? No. Have you had contact with an individual with a confirmed diagnosis of Ebola or COVID-19? No. 06:27 Method Of Arrival: [facility] 06:27 Acuity: Semi-Urgent - 4 [facility] 06:33 Care prior to arrival: See EMS [...] Patient's tobacco-smoking history is unknown. Preferred Language: Cape Verdean. Screenin:48 AUDIT 1. How often do you [...] Policy. 10:31 Patient left the ED. edv 06 09:12 24 hour call back attempted, no answer am7 Signatures: Nickolas Kent, RN RN edv Missael Saldana, DO rc3 Anali Pelayo RN RN Pako Coto MD MD aaq Hogan, Robert RN RN rj Nicole Monteiro Amanda RN RN am7 Corrections: (The following items [...] rce(s) Supporting Document(s) ID Date Data Source [id number] 12/16/2020 09:13:00 AM EDT [facility] 3 hour post Lactic if elevated? Y Name Value Range Interpretation Code Description Data Jammie rce(s) Supporting Document(s) Blood Culture-Venous [facility] ID Date Data Source [id number] 12/16/2020 09:13:00 AM EDT [facility] 3 hour post Lactic if elevated? Y Name Value Range Interpretation Code Description Data Jammie rce(s) Supporting Document(s) Blood Culture-Venous [facility] ID Date Data Source [id number] 12/13/2020 09:27:00 AM EDT [facility] STREP MITIS/ORALIS (VIRIDANS)SCT>100,000 /mL Name Value Range Interpretation Code Description Data Jammie rce(s) Supporting Document(s) ID Date Data Source [id number] 12/13/2020 09:27:00 AM EDT [facility] STREP MITIS/ORALIS (VIRIDANS)SCT>100,000 /mL Name Value Range Interpretation Code Description Data Jammie rce(s) Supporting Document(s) Vancomycin Susceptible. Indicates for microbiol ogy susceptibilities only. [facility] Levofloxacin Susceptible. Indicates for m icrobiology susceptibilities only. [facility] Linezolid Susceptible. Indicates for microbiol ogy susceptibilities only. [facility] Penicillin-G Susceptible. Indicates for m icrobiology susceptibilities only. [facility] ID Date Data Source [id number] 12/12/2020 04:50:00 PM EDT [facility] Name Value Range Interpretation Code Description Data Jammie rce(s) Supporting Document(s) Chlamydia,Urine Negative Normal (applies to non-numeric results) [facility] GC Urine Negative Normal (applies to non-numeric resul ts) [facility] Methodology: Second generation nucleic a randa amplification. ID Date Data Source [id number] 12/11/2020 08:55:00 AM EDT [facility] Name Value Range Interpretation Code Description Data Jammie rce(s) Supporting Document(s) WBC,URINE 0-10 [facility] RBC,[facility] 0[facility]2 [facility] Hyaline Casts,Ur None Seen Normal (applies to non-numeric results) [facility] Bacteria,Urine None Seen [facility] Epithelial Cell,Ur None-Few Normal (applies to non-numer ic results) [facility] Crystals, Urine None Seen [facility] ID Date Data Source [id number] 12/11/2020 08:55:00 AM EDT [facility] Name Value Range Interpretation Code Description Data Jammie rce(s) Supporting Document(s) Color,Urine Yellow [facility] Clarity,Urine Clear [facility] ospital Specific [place],Urine 1.001-1.030 Normal (applies to non- numeric results) [facility] PH,Urine 5.0-8.0 Normal (applies to non-numeric resul ts) [facility] Protein,Urine Negative [facility] ospital Glucose,Urine (UA) Negative Normal (applies to non-numer ic results) [facility] Ketones,Urine 15 mg/dL Negative [facility] ospital Blood,Urine Negative [facility] pital Bilirubin,Urine Negative Normal (applies to non-numeric results) [facility] Urobilinogen,Urine Norm 0.2-1 Normal (applies to non-numer ic results) [facility] Leukocyte Esterase,Urine Negative [facility] Nitrite,Urine Negative [facility] ospital ID Date Data Source [id number] 12/11/2020 08:55:00 AM EDT [facility] Name Value Range Interpretation Code Description Data Jammie rce(s) Supporting Document(s) Urine HCG Negative Normal (applies to non-numeric resul ts) [facility] ID Date Data Source [id number] 12/11/2020 08:57:00 AM EDT [facility] Hospital Name: KAROL HAMM : 1995 A ge/Sex: 25F Ordering Provider: Missael Saldana DO Med Rec #: [id number] Reg Status: [facility] ER Room #: Date of Service: 12/11/20 Report Number: [id number] cc:Paul Colmenares DNP Send Report To: [id number] US/US Transvaginal Reason for exam: R ADNEXAL [...] Date/Time: 12/11/20 0759 Transcribed Date/Time: 12/11/20 0857 Account Director: DANIELA Name Value Range Interpretation Code Description Data Jammie rce(s) Supporting Document(s) ID Date Data Source [id number] 12/11/2020 07:37:00 AM EDT [facility] Name Value Range Interpretation Code Description Data Jammie rce(s) Supporting Document(s) Beta HCG Screen,Qualitative Negative Normal (appli es to non-numeric results) [facility] ID Date Data Source [id number] 12/11/2020 07:16:00 AM EDT [facility] Name Value Range Interpretation Code Description Data Jammie rce(s) Supporting Document(s) Sodium 140 mmol/L 137-145 Normal (applies to non-numeric resul ts) [facility] Potassium 3.5-5.1 Below low normal [facility] Chloride 109 mmol/L 98-112 Normal (applies to non-numeric resul ts) [facility] Carbon Dioxide CO2 22.0-33.0 Normal (applies to non-numer ic results) [facility] Anion Gap 4.0-11.0 Normal (applies to non-numeric resul ts) [facility] BUN 13 mg/dL 7-17 Normal (applies to non-numeric resul ts) [facility] Creatinine 0.70-1.20 Normal (applies to non-numeric resul ts) [facility] GFR >60 Normal (applies to non-numeric results) [facility] Result based on MDRD formula. Glucose Level 127 mg/dL 74-99 Above high normal [facility] The reference range is only applicable w hen fasting. Calcium-Uncorrected 8.4-10.2 Above high normal Ca [facility] Corrected Calcium 8.4-10.2 Above high normal [facility] Bilirubin,Total 0.2-1.3 Normal (applies to non-numeric results) [facility] SGOT(AST) 12 U/L 14-36 Below low normal [facility] SGPT(ALT) 21 U/L 9-52 Normal (applies to non-numeric resul ts) [facility] Alkaline Phosphatase 80 U/L 38-126 Normal (applies to non-num damian results) [facility] can increase Alkaline Phosp le vels up to 2 times the normal adult value. Normal values for children and adolescents are 2 to 3 times the normal adult value. Total Protein 6.3-8.2 Normal (applies to non-numeric re sults) [facility] Albumin 3.5-5.0 Normal (applies to non-numeric resul ts) [facility] ID Date Data Source [id number] 12/11/2020 07:16:00 AM EDT [facility] Name Value Range Interpretation Code Description Data Jammie rce(s) Supporting Document(s) C-Reactive Protein,Wide Range <3.00 Above high normal [facility] ID Date Data Source [id number] 12/11/2020 07:16:00 AM EDT [facility] Name Value Range Interpretation Code Description Data Jammie rce(s) Supporting Document(s) Magnesium 1.80-2.40 Normal (applies to non-numeric resul ts) [facility] ID Date Data Source [id number] 12/11/2020 07:16:00 AM EDT [facility] Name Value Range Interpretation Code Description Data Jammie rce(s) Supporting Document(s) Lipase 82 U/L 73-393 Normal (applies to non-numeric resul ts) [facility] ID Date Data Source [id number] 12/11/2020 07:08:00 AM EDT [facility] 3 hour post Lactic if elevated? Y Name Value Range Interpretation Code Description Data Jammie rce(s) Supporting Document(s) Lactic Acid 0.4-2.0 Normal (applies to non-numeric resu lts) [facility] ID Date Data Source [id number] 12/11/2020 06:56:00 AM EDT [facility] Name Value Range Interpretation Code Description Data Jammie rce(s) Supporting Document(s) White Blood Count 4.8-10.8 Above high normal [facility] Red Blood Count 3.68-5.22 Normal (applies to non-numeric results) [facility] Hemoglobin 11.2-15.7 Normal (applies to non-numeric resul ts) [facility] Hematocrit 34.1-44.9 Normal (applies to non-numeric resul ts) [facility] Mean Corpuscular Volume 81-99 Normal (applies to non- numeric results) [facility] Mean Corpuscular Hemoglobin 27.0-33.0 Normal (appli es to non-numeric results) [facility] Mean Corpuscular HGB Conc 32.0-36.0 Normal (applies to no n-numeric results) [facility] Red Cell Distribution Width 11.5-14.5 Normal (appli es to non-numeric results) [facility] Platelet Count 350 X10 3/uL 130-450 Normal (applies to non-numeric results) [facility] Mean Platelet Volume 9.5-12.7 Normal (applies to non-num damian results) [facility] Imm Grans% (AUTO) 0 % 0-2 Normal (applies to non-numeri c results) [facility] Neutrophils % (AUTO) 88 % 40-75 Above high normal C [facility] Lymphocytes % (AUTO) 6 % 21-46 Below low normal Ca [facility] Monocytes % (AUTO) 5 % 5-12 Normal (applies to non-numer ic results) [facility] Eosinophils % (AUTO) 0 % 1-5 Below low normal Ca [facility] Basophils % (AUTO) 0 % 0-1 Normal (applies to non-numer ic results) [facility] Imm Grans# (AUTO) 0.0-0.5 Normal (applies to non-numeri c results) [facility] Neutrophils # (AUTO) 1.5-8.[address] [facility] Lymphocytes # (AUTO) 1.0-3.1 Normal (applies to non-num damian results) [facility] Monocytes # (AUTO) 0.2-1.3 Normal (applies to non-numer ic results) [facility] Eosinophils# (AUTO) 0.0-0.5 Normal (applies to non-nume [place] results) [facility] Basophils # (AUTO) 0.0-0.1 Normal (applies to non-numer ic results) [facility] ID Date Data Source [id number] 12/11/2020 08:47:00 AM EDT [facility] Name: KAROL HAMM : 1995 A ge/Sex: 25F Ordering Provider: Pako Degroot MD Med Rec #: [id number] Reg Status: [facility] ER Room #: Date of Service: 12/11/20 Report Number: [id number] cc:Paul Colmenares DNP Send Report To: [id number] CT/CT Abdomen & Pelvis w Con Reason [...] Date/Time: 12/11/20 0817 Transcribed Date/Time: 12/11/20 0847 Account Director: SHANE Name Value Range Interpretation Code Description Data Jammie rce(s) Supporting Document(s) ID Date Data Source [id number] 11/14/2020 01:11:00 AM EDT [facility]. PATIENT HISTORY:fell hit head (Hx)EXAM: CT Head [...] 14, 2020 1:09:36 AM EDT by:Parisa Hendrix, [place] Board of RadiologyNOTE: For CT examinations, dose reduction was performed utilizing CAREdose with automated adjustment of the kV and MAS according to patientsize, interactive reconstruction, automated exposure control, as well asadaptive dose shielding.Dose length product for this study was: 464.40 mGy-cmDictated on 11/14/20 0111 by [facility] [employer] NighthawkTranscribed on 11/14/20 1006 by Jeffy Rivera by [employer] on 11/14/20 1009Sign by: [employer] [employer] Name Value Range Interpretation Code Description Data Jammie rce(s) Supporting Document(s) ID Date Data Source [id number] 11/14/2020 02:11:00 AM EDT [facility]. PATIENT HISTORY:fell hit head (Hx)EXAM: CT Cervical [...] 14, 2020 2:11:46 AM EDT by:Parisa Hendrix, [place] Board of RadiologyNOTE: For CT examinations, dose reduction was performed utilizing CAREdose with automated adjustment of the kV and MAS according to patientsize, interactive reconstruction, automated exposure control, as well asadaptive dose shielding.Dose length product for this study was: 259.20 mGy-cmDictated on 11/14/20 0211 by [employer] [employer] NighthawkTranscribed on 11/14/20 1004 by Jeffy Rivera by [employer] on 11/14/20 1009Sign by: [employer] Name Value Range Interpretation Code Description Data Jammie rce(s) Supporting Document(s) ID Date Data Source [id number] 04/09/2020 11:17:00 AM EDT [facility] Name: KAROL HAMM : 1995 A ge/Sex: 25F Ordering Provider: Paul Colmenares DNP Med Rec #: [id number] Reg Status: DEP REF Room #: Date of Service: 04/08/20 Report Number: [id number] cc:Paul Colmenares DNP Send Report To: [id number] XRP/XR Knee Rt 2 views Reason for [...] Dictation Date/Time: 04/09/20 0805 Transcribed Date/Time: 1117 Account Director: DANIELA Name Value Range Interpretation Code Description Data Jammie rce(s) Supporting Document(s) ID Date Data Source [id number] 03/30/2020 08:25:00 AM EDT [employer] RIGHT KNEE, 4 VIEWSInjury.There is noah l alignment and position of the bones of the knee. Noevidence for a joint effusion is noted. No fracture or dislocation isidentified.IMPRESSION: NO RADIOGRAPHIC ABNORMALITIES IDENTIFIED IN THE KNEE.Dictated on 03/30/20 0825 by Merlin Mejias DOTranscribed on 04/02/20 1214 by Rosalinda Field MSign by Merlin Mejias, on 04/03/20 1018Sign by: Merlin Mejias, Name Value Range Interpretation Code Description Data Jammie rce(s) Supporting Document(s) ID Date Data Source [id number] 03/12/2020 07:56:00 PM EDT [employer] LEFT FOOTComparison: 09/27/12Findings: N ormal bone mineral [...]
--- OUTSIDE RECORDS SUMMARY | 2021-04-25 00:12 | CCD ---
Author Author [facility] Organization [facility] Address Unknown Phone Unavailable Care Team Providers Care Assurance Assistant Name Role Phone Elio Szymanski MD [...] Unavailable Unavailable GRAY GONZALEZ MD Unavailable Unavailable Prionas, Noah Unavailable Unavailable [...] Unavailable Zane, Cindy Min MD Unavailable Unavailable UnkenholCharlene sellers MD Unavailable Unavailable UnkenCharlene watts MD Unavailable Unavailable UnkenCharlene watts MD Unavailable Unavailable UnkenholCharlene sellers MD Unavailable Unavailable UnkenholCharlene sellers MD Unavailable Unavailable UnkenCharlene watts MD Unavailable Unavailable Emani Palacios M.D. Unavailable Unavailable PRASHANTGeorgia DOWEL STICKER OPERATOR, BC Unavailable Unavailable PRASHANTGeorgia DOWEL STICKER OPERATOR, BC Unavailable Unavailable PRASHANTGeorgia DOWEL STICKER OPERATOR, BC Unavailable Unavailable PRASHANTGeorgia DOWEL STICKER OPERATOR, BC Unavailable Unavailable PRASHANTGeorgia DOWEL STICKER OPERATOR, BC Unavailable Unavailable PRASHANT, [place] INGRAM DOWEL STICKER OPERATOR, BC Unavailable Unavailable PRASHANTGeorgia DOWEL STICKER OPERATOR, BC Unavailable Unavailable PRASHANTGeorgia DOWEL STICKER OPERATOR, BC Unavailable Unavailable PRASHANTGeorgia DOWEL STICKER OPERATOR, BC Unavailable Unavailable PRASHANTGeorgia DOWEL STICKER OPERATOR, BC Unavailable Unavailable PRASHANTGeorgia DOWEL STICKER OPERATOR, BC Unavailable Unavailable PRASHANTGeorg[place] DOWEL STICKER OPERATOR, BC Unavailable Unavailable PRASHANTGeorg[place] DOWEL STICKER OPERATOR, BC Unavailable Unavailable PRASHANTGeorg[place] DOWEL STICKER OPERATOR, BC Unavailable Unavailable PRASHANTGeorg[place] DOWEL STICKER OPERATOR, BC Unavailable Unavailable PRASHANT, [place] INGRAM DOWEL STICKER OPERATOR, BC Unavailable Unavailable PRASHANTGeorg[place] DOWEL STICKER OPERATOR, BC Unavailable Unavailable PRASHANT, [place] INGRAM DOWEL STICKER OPERATOR, BC Unavailable Unavailable PRASHANT, CHARLY DOWEL STICKER OPERATOR, BC Unavailable Unavailable PRASHANT, CHARLY DOWEL STICKER OPERATOR, BC Unavailable Unavailable PRASHANT, CHARLY DOWEL STICKER OPERATOR, BC Unavailable Unavailable PRASHANT, CHARLY DOWEL STICKER OPERATOR, BC Unavailable Unavailable PRASHANT, CHARLY DOWEL STICKER OPERATOR, BC Unavailable Unavailable PRASHANT, CHARLY DOWEL STICKER OPERATOR, BC Unavailable Unavailable PRASHANT, CHARLY DOWEL STICKER OPERATOR, BC Unavailable Unavailable PRASHANT, CHARLY DOWEL STICKER OPERATOR, BC Unavailable Unavailable PRASHANT, CHARLY DOWEL STICKER OPERATOR, BC Unavailable Unavailable PRASHANT, CHARLY DOWEL STICKER OPERATOR, BC Unavailable Unavailable PRASHANT, CHARLY DOWEL STICKER OPERATOR, BC Unavailable Unavailable PRASHANT, CHARLY DOWEL STICKER OPERATOR, BC Unavailable Unavailable PRASHANT, CHARLY DOWEL STICKER OPERATOR, BC Unavailable Unavailable PRASHANT, CHARLY DOWEL STICKER OPERATOR, BC Unavailable Unavailable PRASHANT, CHARLY DOWEL STICKER OPERATOR, BC Unavailable Unavailable Re-disclosure Warning The [...] is protected by Article 27-F of the [facility] Public Health law. If you continue you may have access to information: Regarding HIV / AIDS; Provided by facilities licensed or operated by the [facility] Office of Mental Health; or Provided by the [facility] Office for People With Developmental Disabilities. If such information is present, then the following [facility] mandated warning applies: This information [...] law may result in a fine or senior care sentence or both. A general authorization for the release of medical or other information is NOT sufficient authorization for further disc losure. Encounters Encounter Providers Location Date Indications Data Source(s ) Emergency Attender: Shaquille Negron MD SURG-ER 03/27/2021 01:29:00 AM EDT [facility] Patient discharged. Emergency Attender: Elio Szymanski MD SURG-ER 021 07:21:00 PM EDT - 03/12/2021 09:55:[address] [facility]. Emergency Attender: Elio Szymanski MD SURG-ER 03/12/2021 07:21:00 PM EDT [facility] Patient discharged. Emergency Attender: Shaquille Negron MD SURG-ER 01/21 05:27:00 AM EDT - 02/01/2021 06:27:[address] [facility]. Emergency Attender: Shaquille Negron MD SURG-ER 02/01/2021 05:27:[address] [facility]. Patient discharged. Emergency Attender: Pako Degroot MD CPSCAORT-ED 12/12/19 06:23:00 AM EDT - 12/11/2020 10:20:00 AM EDT BACK PAIN [facility] BACK PAIN Patient discharged. Emergency Attender: Elio Szymanski MD SURG-ER 021 10:57:00 PM EDT - 11/14/2020 02:30:[address] [facility]. Emergency Attender: Elio Szymanski MD SURG-ER 11/13/2020 10:57:[address] [facility]. Patient discharged. Emergency SURG-ER 10/09/2020 10:45:00 PM EDT [facility] Patient discharged. Outpatient Attender: MATEO DEY-CPSBFFP P 04/25/2020 01:00:00 PM EST [facility] Outpatient Attender: MATEO DEY-IMAPD 04/08/2020 06:12:00 PM EDT - 04/08/2020 06:13:00 PM EDT M25.561 [facility] M25.561 Patient discharged. Emergency SURG-ER 04/04/2020 01:33:[address] [facility]. Patient discharged. Emergency Attender: Veronica Palacios M.D. SURG-ER 1 06:07:00 PM EDT - 03/30/2020 10:41:[address] [facility]. Patient discharged. Emergency Attender: GRAY GONZALEZ MDReferrer: Noah atkinson MD SURG-ER 03/12/2020 06:56:00 PM EDT - 03/12/2020 08:18:[address] [facility]. Patient discharged. Emergency Attender: Shaquille Negron MD SURG-ER 07/2019 01:15:00 AM EDT - 12/23/2019 04:00:[address] [facility]. Patient discharged. Medications Medication Brand Name [...] type / Coverage type Policy ID Covered republican ID Covered republican's relationship to camara Policy Camara Plan Information [employer]AN [id number] [facility] [id number] FA [id number] [facility] [id number] FA [id number] [facility] [id number] FA [id number] [employer] I [id number] Self [id number] [employer] [facility] [id number] S [id number] [employer] MEDICAID MANAGED CARE [id number] SP [id number] SELF PAY UNAVAILABLE SP UNAVAILA BLE MEDICAID [id number] Unemployed [id number] [employer] [place] [id number] Unemployed [id number] [employer] MEDICAID MANAGED CARE [id number] SP [id number] SELF-PAY UNAVAILABLE UNAVAILA BLE AUTO NO FAULT [id number] S [id number] [employer] [place] [id number] S [id number] MEDICAID GME W [id number] S [id number] [facility] [id number] MEDICAID GME W UNAVAILABLE S UNAVA ILABLE [facility] [id number] Unemployed [id number] SELF PAY [id number] SP [id number] SELF PAY ONLY [id number] SP [id number] [facility] MEDICAID [id number] SP [id number] SELF PAY Unemployed [place] MEDICAID MANAGED CARE [id number] Problems, Conditions, and Diagnoses Code Display Name Description Problem Type Effective Dates Data Source(s) Z53.20 Procedure and treatment not carried out because of patient's decision for unspecified reasons PROC/TRTMT NOT CRD OUT BEC PT DECISION FOR UNSP REASON S Diagnosis 12/11/2020 06:23:00 AM EDT [facility] D72.829 Elevated white blood cell count, unspeci fied ELEVATED WHITE BLOOD CELL COUNT, UNSPECIFIED Diagnosis 12/11/2020 06:23:00 AM EDT [facility] N13.9 Obstructive and reflux uropathy, unspeci fied OBSTRUCTIVE AND REFLUX UROPATHY, UNSPECIFIED Diagnosis 12/11/2020 06:23:00 AM EDT [facility] N39.0 Urinary tract infection, site not specif ied URINARY TRACT INFECTION, SITE NOT SPECIFIED Diagnosis 12/11/2020 06:23:00 AM EDT [facility] N13.2 Hydronephrosis with renal and ureteral c alculous obstruction HYDRONEPHROSIS WITH RENAL AND URETERAL CALCULOUS OBSTRUCTION Diagnosis 12/11/2020 06:23:00 AM [facility] Z72.0 Tobacco use TOBACCO USE Diagnosis 04/25/2020 01:00:00 PM [facility] M25.561 Pain in right knee PAIN IN RIGHT KNEE Diagnosis 08/2019 01:00:00 PM [facility] Surgeries/Procedures Procedure Description Date Indications Data Source(s) EMERGENCY DEPARTMENT VISIT MODERATE SEVERITY EMERGENCY DEPT VISIT [facility] MODERATE SEVERITY EMERGENCY DEPT VISIT 02/01/2021 12:00:00 AM [facility] EMERGENCY DEPARTMENT VISIT MODERATE SEVERITY EMERGENCY DEPT VISIT 02/01[facility] MODERATE SEVERITY EMERGENCY DEPT VISIT 02/01/2021 12:00:00 AM [facility] ULTRASOUND TRANSVAGINAL TRANSVAGINAL US NON-OB 12/11/2020 12:00:00 AM [facility] CT ABDOEN & PELVIS W/CONTRAST MATERIAL CT ABD & PELV W/CONTR AST 12/11/2020 12:00:00 AM [facility] Low osmolar contrast material, 300-399 mg/ml iodine co ncentration, per ml Locm 300-399mg/ml iodine,1ml Long 12/11/2020 12:00:00 AM [facility] IADNA NEISSERIA GONORRHOEAE AMPLIFIED PROBE TQ N.GONORRHOEAE DNA AMP PROB 12/11/2020 12:00:00 AM [facility] IADNA CHLAMYDIA TRACHOMATIS AMPLIFIED PROBE TQ CHYLMD TRACH DNA AMP PROBE 12/11/2020 12:00:00 AM [facility] CUL PRSMPTV PTHGNC ORGANISM SCRN W/COLONY ESTIMJ CULTURE SCR EEN ONLY 12/11/2020 12:00:00 AM [facility] CULTURE BACTERIAL BLOOD AEROBIC W/ID ISOLATES BLOOD CULTURE FOR BACTERIA 12/11/2020 12:00:00 AM [facility] SUSCEPTIBLTY STDY ANTIMICRBIAL MICRO/AGAR DILUTJ MICROBE AMADO CEPTIBLE MARY 12/11/2020 12:00:00 AM [facility] URINALYSIS MICROSCOPIC ONLY MICROSCOPIC EXAM OF URINE 2020 12:00:00 AM [facility] BLOOD COUNT COMPLETE AUTO&AUTO DIFRNTL WBC COUNT COMPLETE CB C W/AUTO DIFF WBC 12/11/2020 12:00:00 AM [facility] MAGNESIUM ASSAY OF MAGNESIUM 12/11/2020 12:00:00 AM [facility] GONADOTROPIN CHORIONIC QUALITATIVE CHORIONIC GONADOTROPIN SAY 12/11/2020 12:00:00 AM [facility] URINE TEST VISUAL COLOR CMPRSN METHS URINE PREGNAN CY TEST 12/11/2020 12:00:00 AM [facility] LACTATE ASSAY OF LACTIC ACID 12/11/2020 12:00:00 AM [facility] C-REACTIVE PROTEIN C-REACTIVE PROTEIN 12/11/2020 12:00:00 AM [facility] LIPASE ASSAY OF LIPASE 12/11/2020 12:00:00 AM [facility] COMPREHENSIVE METABOLIC PANEL COMPREHEN METABOLIC PANEL 11/22 12:00:00 AM [facility] Injection, hydromorphone, up to 4 mg 12/11/2020 12:00: 00 AM [facility] Injection, acetaminophen, 10 mg 12/11/2020 12:00:00 AM [facility] Non-covered item or service NON-COVERED ITEM OR SERVICE 11/22 12:00:00 AM [facility] Injection, ceftriaxone sodium, per 250 mg 12/11/2020 1 2:00:00 AM [facility] THERAPEUTIC INJECTION IV PUSH EACH NEW DRUG TX/PRO/DX INJ NE W DRUG ADDON 12/11/2020 12:00:00 AM [facility] IV INFUSION THERAPY/PROPHYLAXIS /DX 1ST TO 1 HR THER/PROPH/D IAG IV INF INIT 12/11/2020 12:00:00 AM [facility] IV INFUSION HYDRATION EACH ADDITIONAL HOUR HYDRATE IV INFUSI ON ADD-ON 12/11/2020 12:00:00 AM [facility] EMERGENCY DEPT VISIT HIGH SEVERITY&THREAT FUNCJ EMERGENCY DE PT VISIT 12/11/2020 12:00:00 AM [facility] EMERGENCY DEPARTMENT VISIT MODERATE SEVERITY EMERGENCY DEPT VISIT 11/13/2020 [facility] HIGH/URGENT SEVERITY EMERGENCY DE PT VISIT 11/13/2020 12:00:[facility] VISIT MODERATE SEVERITY EMERGENCY DEPT VISIT 11/13/2020 12:00:[facility] VISIT HIGH/URGENT SEVERITY EMERGENCY DE PT VISIT 11/13/2020 12:00:00 AM [facility] EMERGENCY DEPARTMENT VISIT MODERATE SEVERITY EMERGENCY DEPT VISIT 11/13/2020 [facility] VISIT HIGH/URGENT SEVERITY EMERGENCY DE PT VISIT 11/13/2020 12:00:00 AM EDT [facility] EMERGENCY DEPARTMENT VISIT MODERATE SEVERITY EMERGENCY DEPT VISIT 10/09/2020 12:00:00 AM EDT [facility] EMERGENCY DEPARTMENT VISIT MODERATE SEVERITY EMERGENCY DEPT VISIT 10/09/2020 12:00:00 AM EDT [facility] SMPL REPAIR SCALP/NECK/AX/GENIT/TRUNK 2.6-7.5CM RPR S/N/AX/G EN/TRNK2.6-7.5CM 10/09/2020 12:00:00 AM EDT [facility] SMPL REPAIR SCALP/NECK/AX/GENIT/TRUNK 2.6-7.5CM RPR S/N/AX/G EN/TRNK2.6-7.5CM 10/09/2020 12:00:00 AM EDT [facility] EMERGENCY DEPARTMENT VISIT MODERATE SEVERITY EMERGENCY DEPT VISIT 10/09/2020 12:00:00 AM EDT [facility] EMERGENCY DEPARTMENT VISIT MODERATE SEVERITY EMERGENCY DEPT VISIT 10/09/2020 12:00:00 AM EDT [facility] SMPL REPAIR SCALP/NECK/AX/GENIT/TRUNK 2.6-7.5CM RPR S/N/AX/G EN/TRNK2.6-7.5CM 10/09/2020 12:00:00 AM EDT [facility] SMPL REPAIR SCALP/NECK/AX/GENIT/TRUNK 2.6-7.5CM RPR S/N/AX/G EN/TRNK2.6-7.5CM 10/09/2020 12:00:00 AM EDT [facility] EMERGENCY DEPARTMENT VISIT MODERATE SEVERITY EMERGENCY DEPT VISIT 10/09/2020 12:00:00 AM EDT [facility] EMERGENCY DEPARTMENT VISIT MODERATE SEVERITY EMERGENCY DEPT VISIT 10/09/2020 12:00:00 AM EDT [facility] SMPL REPAIR SCALP/NECK/AX/GENIT/TRUNK 2.6-7.5CM RPR S/N/AX/G EN/TRNK2.6-7.5CM 10/09/2020 12:00:00 AM EDT [facility] SMPL REPAIR SCALP/NECK/AX/GENIT/TRUNK 2.6-7.5CM RPR S/N/AX/G EN/TRNK2.6-7.5CM 10/09/2020 12:00:00 AM EDT [facility] EMERGENCY DEPARTMENT VISIT MODERATE SEVERITY EMERGENCY DEPT VISIT 10/09/2020 12:00:00 AM EDT [facility] EMERGENCY DEPARTMENT VISIT MODERATE SEVERITY EMERGENCY DEPT VISIT 10/09/2020 12:00:00 AM EDT [facility] SMPL REPAIR SCALP/NECK/AX/GENIT/TRUNK 2.6-7.5CM RPR S/N/AX/G EN/TRNK2.6-7.5CM 10/09/2020 12:00:00 AM EDT [facility] SMPL REPAIR SCALP/NECK/AX/GENIT/TRUNK 2.6-7.5CM RPR S/N/AX/G EN/TRNK2.6-7.5CM 10/09/2020 12:00:00 AM EDT [facility] EMERGENCY DEPARTMENT VISIT MODERATE SEVERITY EMERGENCY DEPT VISIT 10/09/2020 12:00:00 AM EDT [facility] EMERGENCY DEPARTMENT VISIT MODERATE SEVERITY EMERGENCY DEPT VISIT 10/09/2020 12:00:00 AM EDT [facility] SMPL REPAIR SCALP/NECK/AX/GENIT/TRUNK 2.6-7.5CM RPR S/N/AX/G EN/TRNK2.6-7.5CM 10/09/2020 12:00:00 AM EDT [facility] SMPL REPAIR SCALP/NECK/AX/GENIT/TRUNK 2.6-7.5CM RPR S/N/AX/G EN/TRNK2.6-7.5CM 10/09/2020 12:00:00 AM EDT [facility] OFFICE OUTPATIENT VISIT 5 MINUTES OFFICE/OUTPATIENT VISIT ES T 04/25/2020 12:00:00 AM [facility] THERAPEUTIC PROPHYLACTIC/DX INJECTION SUBQ/IM THER/PROPH/DIVYA G INJ SC/IM 04/25/2020 12:00:00 AM [facility] EMERGENCY DEPARTMENT VISIT MODERATE SEVERITY EMERGENCY DEPT VISIT 03/12/2020 12:00:00 AM EDT [facility] EMERGENCY DEPARTMENT VISIT MODERATE SEVERITY EMERGENCY DEPT VISIT 03/12/2020 12:00:00 AM EDT [facility] EMERGENCY DEPARTMENT VISIT MODERATE SEVERITY EMERGENCY DEPT VISIT 03/12/2020 12:00:00 AM EDT [facility] EMERGENCY DEPARTMENT VISIT MODERATE SEVERITY EMERGENCY DEPT VISIT 03/12/2020 12:00:[address] [facility]. Results ID Date Data Source [id number] 03/12/2021 09:04:[address] [facility]. RIGHT HANDFindings/Impression: There is no fracture or dislocation. Nosignificant degenerative changes. No acute soft tissue abnormality.Dictated on 03/12/21 2104 by Brett Sandoval M.D.Transcribed on 03/13/21 1122 by Jeffy Rivera by Brett Sandoval M.D. on 03/14/21 1156Sign by: Brett Sandoval M.D. Name Value Range Interpretation Code Description Data Jammie e(s) Supporting Document(s) ID Date Data Source [id number] 02/01/2021 07:13:[address] [facility]. [...] rce(s) Supporting Document(s) ID Date Data Source [id number] 12/11/2020 06:23:00 AM EDT [facility] Name: KAROL HAMM Vasyl [facility] Rec #: [id number] 22 : 1995 Age/Sex: 25F Date of Service: 12/11/20 DISPOSITION SUMMARY Discharge Summary [facility] Name:Karol Hamm Emergency Department Age:25 yrs Sex:Female :1995 Arrival:12/11/2020 06:23 Departure Date12/11/2020 Departure Time10:31 Private MD:Rashawn, Primary Care Provider- Outcome: Left Against Medical [...] rce(s) Supporting Document(s) ID Date Data Source [id number] 12/11/2020 06:23:00 AM EDT [facility] Name: KAROL HAMM [facility] Rec #: [id number] 22 : 1995 Age/Sex: 25F Date of Service: 12/11/20 PHYSICIAN CHART Physician Documentation [facility] Name: Karol Hamm Age: 25 yrs Sex: Female : 1995 Arrival Date: 12/11/2020 Time: 06:23 Bed 1 Private MD: None, Primary Care Provider- ED Physician Missael Saldana HPI: 12/11 06:32 This 25 yrs [facility]. 06:32 [...] Patient's tobacco-smoking history is unknown. Preferred Language: Tuvaluan. ROS: 06:33 Constitutional: A 10 point review [...] for outpatient follow up. 15:37 Data reviewed: [facility] Prescription Monitoring Program rc3 Registry. 12/11 06:31 Order name: Cbc With Auto Differential; Complete Time: 07:00aaq 12/11 07:00 Interpretation: WBC 17.3; RBC 4.41; HGB 13.3; HCT 37.4; MCV aaq 84.8; MCH 30.2; MCHC 35.6; RDW 13.1; PLT 350; MPV 10.7; ImmGran% (AUTO) 0; Neut% (AUTO) 88; Lymph% (AUTO) 6; Perkins% (AUTO) 5; Eos% (AUTO) 0; Baso% (AUTO) 0; ImmGran# (AUTO) 0.1; Neut# (AUTO) 15.3; Lymph# (AUTO) 1.1; Perkins# (AUTO) 0.9; Eos# (AUTO) <0.03; Baso# (AUTO) [...] name: C-Reactive Protein,Wide Range; Complete Time: aaq 07:23 12/11 07:24 Interpretation: CRP-wr 6.11; Minimal elevation. [facility] 12/11 06:31 Order name: Magnesium; Complete Time: 07:23 aaq 12/11 07:25 Interpretation: MG 1.90. [facility] 12/11 06:31 Order name: Lipase; Complete Time: 07:23 aaq 12/11 07:25 Interpretation: LIP 82. [facility] 12/11 06:31 Order name: UA.; [...] DO DO rc3 Anali Pelayo RN RN b Pako Degroot MD MD aaq Muldoon, Amanda, RN RN am7 Lashae Parrish RN [email or web address] Corrections: (The following items were deleted from the chart) 06:33 06:32 . ryan davis 08:12 07:26 Straight Cath+ANA ordered. rc3 am7 Name Value Range Interpretation Code Description Data Jammie rce(s) Supporting Document(s) ID Date Data Source [id number] 12/11/2020 06:23:00 AM EDT [facility] Name: KAROL HAMM [facility] Rec #: [id number] 22 : 1995 Age/Sex: 25F Date of Service: 12/11/20 NURSE CHART Nurse's Notes [facility] Name: Karol Hamm Age: 25 yrs Sex: Female : 1995 Arrival Date: 12/11/2020 Time: 06:23 Bed 1 Private MD: None, Primary Care Provider- Diagnosis: 5 mm distal right ureteral stone with hydroureter and hydronephrosis;Urinary tract infection in the setting of obstructive uropathy Presentation: 12/11 06:27 Transition of care: patient was not received from another [facility] setting of care. Presenting complaint: Patient states - Right lower back pain started abruptly at midnight, now radiating to RLQ. Have you travelled in the last 30 days? No. Have you had contact with an individual with a confirmed diagnosis of Ebola or COVID-19? No. 06:27 Method Of Arrival: [facility] 06:27 Acuity: Semi-Urgent - 4 [facility] 06:33 Care prior to arrival: See EMS [...] Patient's tobacco-smoking history is unknown. Preferred Language: Tuvaluan. Screenin:48 AUDIT 1. How often do you [...] by lab staff. skb 06:56 Gayla Ozuna, RN is Primary Nurse. am7 06:56 Primary Nurse [...] rce(s) Supporting Document(s) ID Date Data Source [id number] 12/16/2020 09:13:00 AM EDT [facility] 3 hour post Lactic if elevated? Y Name Value Range Interpretation Code Description Data Jammie rce(s) Supporting Document(s) Blood Culture-Venous [facility] ID Date Data Source [id number] 12/16/2020 09:13:00 AM EDT [facility] 3 hour post Lactic if elevated? Y Name Value Range Interpretation Code Description Data Jammie rce(s) Supporting Document(s) Blood Culture-Venous [facility] ID Date Data Source [id number] 12/13/2020 09:27:00 AM EDT [facility] STREP MITIS/ORALIS (VIRIDANS)SCT>100,000 /mL Name Value Range Interpretation Code Description Data Jammie rce(s) Supporting Document(s) ID Date Data Source [id number] 12/13/2020 09:27:00 AM EDT [facility] STREP MITIS/ORALIS (VIRIDANS)SCT>100,000 /mL Name Value Range Interpretation Code Description Data Jammie rce(s) Supporting Document(s) Vancomycin Susceptible. Indicates for microbiol ogy susceptibilities only. [facility] Levofloxacin Susceptible. Indicates for m icrobiology susceptibilities only. [facility] Linezolid Susceptible. Indicates for microbiol ogy susceptibilities only. [facility] Penicillin-G Susceptible. Indicates for m icrobiology susceptibilities only. [facility] ID Date Data Source [id number] 12/12/2020 04:50:00 PM EDT [facility] Name Value Range Interpretation Code Description Data Jammie rce(s) Supporting Document(s) Chlamydia,Urine Negative Normal (applies to non-numeric results) [facility] GC Urine Negative Normal (applies to non-numeric resul ts) [facility] Methodology: Second generation nucleic a randa amplification. ID Date Data Source [id number] 12/11/2020 08:55:00 AM EDT [facility] Name Value Range Interpretation Code Description Data Jammie rce(s) Supporting Document(s) [facility],URINE [facility],Urine 0-2 [facility] Hyaline Casts,Ur None Seen Normal (applies to non-numeric results) [facility] Bacteria,Urine None Seen [facility] Epithelial Cell,Ur None-Few Normal (applies to non-numer ic results) [facility] Crystals, Urine None Seen [facility] ID Date Data Source [id number] 12/11/2020 08:55:00 AM EDT [facility] Name Value Range Interpretation Code Description Data Jammie rce(s) Supporting Document(s) Color,Urine Yellow [facility] pital Clarity,Urine Clear [facility] Specific [place],Urine 1.001-1.030 Normal (applies to non- numeric results) [facility] PH,Urine 5.0-8.0 Normal (applies to non-numeric resul ts) [facility] Protein,Urine Negative [facility] Glucose,Urine (UA) Negative Normal (applies to non-numer ic results) [facility] Ketones,Urine 15 mg/dL Negative [facility] Blood,Urine Negative [facility] pital Bilirubin,Urine Negative Normal (applies to non-numeric results) [facility] Urobilinogen,Urine Norm 0.2-1 Normal (applies to non-numer ic results) [facility] Leukocyte Esterase,Urine Negative [facility] Nitrite,Urine Negative [facility] ID Date Data Source [id number] 12/11/2020 08:55:00 AM EDT [facility] Name Value Range Interpretation Code Description Data Jammie rce(s) Supporting Document(s) Urine HCG Negative Normal (applies to non-numeric resul ts) [facility] ID Date Data Source [id number] 12/11/2020 08:57:00 AM EDT [facility] Name: KAROL HAMM Vasyl : 1995 A ge/Sex: 25F Ordering Provider: Missael Saldana DO Med Rec #: [id number] Reg Status: DEP ER Room #: Date of Service: 12/11/20 Report Number: [id number] cc:Paul Colmenares DNP Send Report To: [id number] US/US Transvaginal Reason for exam: R ADNEXAL [...] Date/Time: 12/11/20 0759 Transcribed Date/Time: 12/11/20 0857 Car Deliverer: DANIELA Name Value Range Interpretation Code Description Data Jammie rce(s) Supporting Document(s) ID Date Data Source [id number] 12/11/2020 07:37:00 AM EDT [facility] Name Value Range Interpretation Code Description Data Jammie rce(s) Supporting Document(s) Beta HCG Screen,Qualitative Negative Normal (appli es to non-numeric results) [facility] ID Date Data Source [id number] 12/11/2020 07:16:00 AM EDT [facility] Name Value Range Interpretation Code Description Data Jammie rce(s) Supporting Document(s) Sodium 140 mmol/L 137-145 Normal (applies to non-numeric resul ts) [facility] Potassium 3.5-5.1 Below low normal [facility] Chloride 109 mmol/L 98-112 Normal (applies to non-numeric resul ts) [facility] Carbon Dioxide CO2 22.0-33.0 Normal (applies to non-numer ic results) [facility] Anion Gap 4.0-11.0 Normal (applies to non-numeric resul ts) [facility] BUN 13 mg/dL 7-17 Normal (applies to non-numeric resul ts) [facility] Creatinine 0.70-1.20 Normal (applies to non-numeric resul ts) [facility] GFR >60 Normal (applies to non-numeric results) [facility] Result based on MDRD formula. Glucose Level 127 mg/dL 74-99 Above high normal [facility] The reference range is only applicable w hen fasting. Calcium-Uncorrected 8.4-10.2 Above high normal [facility] Corrected Calcium 8.4-10.2 Above high normal [facility] Bilirubin,Total 0.2-1.3 Normal (applies to non-numeric results) [facility] SGOT(AST) 12 U/L 14-36 Below low normal [facility] SGPT(ALT) 21 U/L 9-52 Normal (applies to non-numeric resul ts) [facility] Alkaline Phosphatase 80 U/L 38-126 Normal (applies to non-num damian results) [facility] can increase Alkaline Phosp le vels up to 2 times the normal adult value. Normal values for children and adolescents are 2 to 3 times the normal adult value. Total Protein 6.3-8.2 Normal (applies to non-numeric re sults) [facility] Albumin 3.5-5.0 Normal (applies to non-numeric resul ts) [facility] ID Date Data Source [id number] 12/11/2020 07:16:00 AM EDT [facility] Name Value Range Interpretation Code Description Data Jammie rce(s) Supporting Document(s) C-Reactive Protein,Wide Range <3.00 Above high normal [facility] ID Date Data Source [id number] 12/11/2020 07:16:00 AM EDT [facility] Name Value Range Interpretation Code Description Data Jammie rce(s) Supporting Document(s) Magnesium 1.80-2.40 Normal (applies to non-numeric resul ts) [facility] ID Date Data Source [id number] 12/11/2020 07:16:00 AM EDT [facility] Name Value Range Interpretation Code Description Data Jammie rce(s) Supporting Document(s) Lipase 82 U/L 73-393 Normal (applies to non-numeric resul ts) [facility] ID Date Data Source [id number] 12/11/2020 07:08:00 AM EDT [facility] 3 hour post Lactic if elevated? Y Name Value Range Interpretation Code Description Data Jammie rce(s) Supporting Document(s) Lactic Acid 0.4-2.0 Normal (applies to non-numeric resu lts) [facility] ID Date Data Source [id number] 12/11/2020 06:56:00 AM EDT [facility] Name Value Range Interpretation Code Description Data Jammie rce(s) Supporting Document(s) White Blood Count 4.8-10.8 Above high normal [facility] Red Blood Count 3.68-5.22 Normal (applies to non-numeric results) [facility] Hemoglobin 11.2-15.7 Normal (applies to non-numeric resul ts) [facility] Hematocrit 34.1-44.9 Normal (applies to non-numeric resul ts) [facility] Mean Corpuscular Volume 81-99 Normal (applies to non- numeric results) [facility] Mean Corpuscular Hemoglobin 27.0-33.0 Normal (appli es to non-numeric results) [facility] Mean Corpuscular HGB Conc 32.0-36.0 Normal (applies to no n-numeric results) [facility] Red Cell Distribution Width 11.5-14.5 Normal (appli es to non-numeric results) [facility] Platelet Count 350 X10 3/uL 130-450 Normal (applies to non-numeric results) [facility] Mean Platelet Volume 9.5-12.7 Normal (applies to non-num damian results) [facility] Imm Grans% (AUTO) 0 % 0-2 Normal (applies to non-numeri c results) [facility] Neutrophils % (AUTO) 88 % 40-75 Above high normal [facility] Lymphocytes % (AUTO) 6 % 21-46 Below low normal [facility] Monocytes % (AUTO) 5 % 5-12 Normal (applies to non-numer ic results) [facility] Eosinophils % (AUTO) 0 % 1-5 Below low normal [facility] Basophils % (AUTO) 0 % 0-1 Normal (applies to non-numer ic results) [facility] Imm Grans# (AUTO) 0.0-0.5 Normal (applies to non-numeri c results) [facility] Neutrophils # (AUTO) 1.5-8.1 Above high normal [facility] Lymphocytes # (AUTO) 1.0-3.1 Normal (applies to non-num damian results) [facility] Monocytes # (AUTO) 0.2-1.3 Normal (applies to non-numer ic results) [facility] Eosinophils# (AUTO) 0.0-0.5 Normal (applies to non-nume [place] results) [facility] Basophils # (AUTO) 0.0-0.1 Normal (applies to non-numer ic results) [facility] ID Date Data Source [id number] 12/11/2020 08:47:00 AM EDT [facility] Name: KAROL HAMM : 1995 A ge/Sex: 25F Ordering Provider: Pako Degroot MD Med Rec #: [id number] Reg Status: [facility] ER Room #: Date of Service: 12/11/20 Report Number: [id number] cc:Paul Colmenares DNP Send Report To: [id number] CT/CT Abdomen & Pelvis w Con Reason [...] Date/Time: 12/11/20 0817 Transcribed Date/Time: 12/11/20 0847 Car Deliverer: SHANE Name Value Range Interpretation Code Description Data Jammie rce(s) Supporting Document(s) ID Date Data Source [id number] 11/14/2020 01:11:00 AM EDT [facility] PATIENT HISTORY:fell hit head (Hx)EXAM: CT Head [...] 14, 2020 1:09:36 AM EDT by:Parisa Hendrix, [place] Board of RadiologyNOTE: For CT examinations, dose reduction was performed utilizing CAREdose with automated adjustment of the kV and MAS according to patientsize, interactive reconstruction, automated exposure control, as well asadaptive dose shielding.Dose length product for this study was: 464.40 mGy-cmDictated on 11/14/20 0111 by [employer] [facility] NighthawkTranscribed on 11/14/20 1006 by Jeffy Rivera by [employer] on 11/14/20 1009Sign by: [facility] Name Value Range Interpretation Code Description Data Jammie rce(s) Supporting Document(s) ID Date Data Source [id number] 11/14/2020 02:11:00 AM EDT [facility] PATIENT HISTORY:fell hit head (Hx)EXAM: CT Cervical [...] 14, 2020 2:11:46 AM EDT by:Parisa Hendrix, [place] Board of RadiologyNOTE: For CT examinations, dose reduction was performed utilizing CAREdose with automated adjustment of the kV and MAS according to patientsize, interactive reconstruction, automated exposure control, as well asadaptive dose shielding.Dose length product for this study was: 259.20 mGy-cmDictated on 11/14/20 0211 by [email or web address] [facility] NighthawkTranscribed on 11/14/20 1004 by Jeffy Rivera by [employer] on 11/14/20 1009Sign by: [facility] [employer] Name Value Range Interpretation Code Description Data Jammie rce(s) Supporting Document(s) ID Date Data Source [id number] 04/09/2020 11:17:00 AM EDT [facility] Name: KAROL HAMM : 1995 A ge/Sex: 25F Ordering Provider: Paul Colmenares DNP Med Rec #: [id number] Reg Status: DEP REF Room #: Date of Service: 04/08/20 Report Number: [id number] cc:Paul Colmenares DNP Send Report To: [id number] XRP/XR Knee Rt 2 views Reason for [...] Dictation Date/Time: 04/09/20 0805 Transcribed Date/Time: 1117 Car Deliverer: DANIELA Name Value Range Interpretation Code Description Data Jammie rce(s) Supporting Document(s) ID Date Data Source [id number] 03/30/2020 08:25:00 AM EDT [facility] RIGHT KNEE, 4 VIEWSInjury.There is noah [...] rce(s) Supporting Document(s) ID Date Data Source [id number] 03/12/2020 07:56:00 PM EDT [facility] LEFT FOOTComparison: 09/27/12Findings: N ormal bone mineral density.No radiographic evidence of acute fracture or dislocation.No significant soft tissue edema.The joint spaces are relatively maintained.No radiopaque foreign body.IMPRESSION: UNREMARKABLE LEFT FOOT RADIOGRAPH.Dictated on 03/12/201955 by Angeles Laguerre M.D.Transcribed on 03/13/209 by Jeffy Rivera by Angeles Laguerre M.D. on 03/15/20 0918Sign by: Angeles Laguerre M.D. Name Value Range Interpretation Code Description Data Jammie rce(s) Supporting Document(s) Procedure Social History No Information
== END 2021-04-25 00:07 | disposition left against medical advice (07) ==
LOC: M ED 18:15
DX: Z53.21 Procedure and treatment not carried out due to patient leaving prior to being seen by health care provider (principal)

== ENCOUNTER 2021-06-14 22:06 | Emergency (ER) | payer OTHER ==
[~2021-06-14] VITALS: Ht 152.4 cm; Wt 45.8 kg
--- NOTE | 2021-06-15 05:44 | REPVR ---
PROCEDURE INFORMATION: Exam: XR Right Foot Exam date and time: 06/15/2021 5:19 AM Age: 26 years old Clinical indication: Other: Possible glass in foot TECHNIQUE: Imaging protocol: XR Right foot. Views: 3 or more views. COMPARISON: CR Foot, complete 04/11/2021 10:53 PM FINDINGS: Bones/joints: There is a tiny radiodense focus measuring the around 1 mm in the superficial soft tissues of the lateral distal 2nd toe lateral to the nailbed. Soft tissues: Normal. IMPRESSION: 1. No acute fracture or dislocation. 2. Tiny 1 mm radiodense focus in the superficial soft tissues of the lateral distal 2nd toe lateral to the nailbed possibly foreign body. Electronically signed by: Shade Blount On 06/15/2021 05:44:02 AM
[2021-06-15 06:29] VITALS: BP 116/75
== END 2021-06-15 08:23 | disposition home or self-care (01) ==
LOC: M ED 22:06
DX: S90.811A Abrasion, right foot, initial encounter (principal); S90.851A Superficial foreign body, right foot, initial encounter; W25.XXXA Contact with sharp glass, initial encounter; Y92.009 Unspecified place in unspecified non-institutional (private) residence as the place of occurrence of the external cause; Y93.89 Activity, other specified; Y99.8 Other external cause status; Z88.8 Allergy status to other drugs, medicaments and biological substances

== ENCOUNTER 2021-11-11 19:46 | Emergency (ER) | payer OTHER ==
[~2021-11-11] VITALS: Ht 152.4 cm; Wt 44.4 kg
[2021-11-11] MEDS ORDERED: BACTRIM 160MG/800MG DS TAB PO ONE (21:20)
[2021-11-11] MEDS ORDERED: ACETAMINOPHEN 325 MG TAB PO ONE (21:20)
[2021-11-11] MEDS ORDERED: BACT800T5 PO (21:21)
[2021-11-11 21:44] VITALS: BP 120/64
== END 2021-11-11 21:45 | disposition home or self-care (01) ==
LOC: M ED 19:46
DX: L08.9 Local infection of the skin and subcutaneous tissue, unspecified (principal); F17.200 Nicotine dependence, unspecified, uncomplicated; Z88.6 Allergy status to analgesic agent

== ENCOUNTER 2021-12-09 17:19 | Emergency (ER) | payer OTHER ==
[~2021-12-09] VITALS: Ht 152.4 cm; Wt 45.1 kg
[~2021-12-09 17:19] MED LIST changes: +BACT800T5 PO
[2021-12-09] MEDS ORDERED: IBUP200C33 PO (17:41)
[2021-12-09] MEDS ORDERED: CEPHALEXIN 500 MG CAP PO ONE (19:20)
[2021-12-09] MEDS ORDERED: CEPH500C PO (19:23)
[2021-12-09 19:35] VITALS: BP 123/62
== END 2021-12-09 19:36 | disposition home or self-care (01) ==
LOC: M ED 17:19
DX: S61.216A Laceration without foreign body of right little finger without damage to nail, initial encounter (principal); W23.0XXA Caught, crushed, jammed, or pinched between moving objects, initial encounter; Y92.099 Unspecified place in other non-institutional residence as the place of occurrence of the external cause; Z88.6 Allergy status to analgesic agent

== ENCOUNTER 2022-01-28 19:20 | Emergency (ER) | payer OTHER ==
[~2022-01-28] VITALS: Ht 152.4 cm; Wt 45.9 kg
[~2022-01-28 19:20] MED LIST changes: +CEPH500C PO; +IBUP200C33 PO
[2022-01-29] MEDS ORDERED: ACETAMINOPHEN 500 MG TAB PO ONE (07:20)
[2022-01-29] MEDS ORDERED: METOCLOPRAMIDE INJ 10MG/2ML VIAL (J2765 PER 1) IV ONE (07:20)
[2022-01-29] MEDS ORDERED: NS 1,000 ML IV ONE (07:20)
[2022-01-29] MEDS ORDERED: diphenhydrAMINE 50MG/ML VIAL (J1200) IV ONE (07:20)
[2022-01-29 08:07] LABS: BASO # 0.1 10^3/uL (0.0-0.2); BASO % 0.6 % (0.0-1.0); EOS # 0.5 10^3/uL (0.0-0.5); HEMATOCRIT 44.7 % (36.0-47.0); HEMOGLOBIN 14.3 g/dl (12.0-15.5); LYMPH # 3.6 10^3/uL (1.5-5.0); LYMPH % 31.2 % (24.0-44.0); MEAN CORPUSCULAR HEMOGLOBIN 30.8 pg (27.0-33.0); MEAN CORPUSCULAR VOLUME 96.3 fl (80.0-96.0); MONO # 0.9 10^3/uL (0.0-0.8); MONO % 7.9 % (2.0-8.0); NEUTROPHILS # 6.5 10^3/uL (1.5-8.5); PLATELET COUNT, AUTOMATED 330 10^3/uL (150-450); RED BLOOD COUNT 4.64 10^6/uL (4.00-5.40); WHITE BLOOD COUNT 11.5 10^3/uL (4.0-10.0)
[2022-01-29 08:23] LABS: BLOOD UREA NITROGEN 15 MG/DL (7-18); CALCIUM LEVEL 11.1 MG/DL (8.5-10.1); CARBON DIOXIDE LEVEL 27 MEQ/L (21-32); CHLORIDE LEVEL 111 MEQ/L (98-107); CREATININE FOR GFR 0.65 MG/DL (0.55-1.30); GLOMERULAR FILTRATION RATE > 60.0 (>60); GLUCOSE, FASTING 94 MG/DL (70-100); SODIUM LEVEL 145 MEQ/L (136-145)
[2022-01-29 09:26] VITALS: BP 111/59
== END 2022-01-29 09:29 | disposition home or self-care (01) ==
LOC: M ED 19:20
DX: G43.109 Migraine with aura, not intractable, without status migrainosus (principal); Z88.6 Allergy status to analgesic agent
CPT/HCPCS: 80048; 84702; 85025; 96361; 96374; 96375; 99284; J1200; J2765

== ENCOUNTER 2022-03-06 18:20 | Emergency (ER) | payer OTHER ==
[~2022-03-06] VITALS: Ht 152.4 cm; Wt 46.3 kg
[2022-03-06] MEDS ORDERED: NEOSPORIN OINT 0.9 GM PKT TOP ONE (19:25)
[2022-03-06 19:28] VITALS: BP 128/84
== END 2022-03-06 19:36 | disposition home or self-care (01) ==
LOC: M ED 18:20
DX: S60.511A Abrasion of right hand, initial encounter (principal); S60.221A Contusion of right hand, initial encounter; W27.4XXA Contact with kitchen utensil, initial encounter; Y92.099 Unspecified place in other non-institutional residence as the place of occurrence of the external cause; F17.200 Nicotine dependence, unspecified, uncomplicated; Z88.6 Allergy status to analgesic agent

== ENCOUNTER → 2022-04-23 | Outpatient (CLI) | payer OTHER ==
[2022-04-23 18:00] LABS: BASO # 0.1 10^3/uL (0.0-0.2); BASO % 0.6 % (0.0-1.0); EOS # 0.2 10^3/uL (0.0-0.5); EOS % 2.3 % (0.0-3.0); HEMATOCRIT 41.3 % (36.0-47.0); HEMOGLOBIN 13.1 g/dl (12.0-15.5); LYMPH # 2.7 10^3/uL (1.5-5.0); LYMPH % 34.5 % (24.0-44.0); MEAN CORPUSCULAR HEMOGLOBIN 30.3 pg (27.0-33.0); MEAN CORPUSCULAR HGB CONC 31.7 g/dl (32.0-36.5); MEAN CORPUSCULAR VOLUME 95.6 fl (80.0-96.0); MONO # 0.6 10^3/uL (0.0-0.8); MONO % 7.8 % (2.0-8.0); NEUTROPHILS # 4.3 10^3/uL (1.5-8.5); NEUTROPHILS % 54.5 % (36.0-66.0); PLATELET COUNT, AUTOMATED 319 10^3/uL (150-450); RED BLOOD COUNT 4.32 10^6/uL (4.00-5.40); WHITE BLOOD COUNT 7.9 10^3/uL (4.0-10.0)
[2022-04-23 18:53] LABS: ALBUMIN 3.8 GM/DL (3.2-5.2); ALT/SGPT 18 U/L (12-78); BILIRUBIN,TOTAL 0.2 MG/DL (0.2-1.0); BLOOD UREA NITROGEN 8 MG/DL (7-18); CALCIUM LEVEL 11.1 MG/DL (8.5-10.1); CARBON DIOXIDE LEVEL 28 MEQ/L (21-32); CHLORIDE LEVEL 108 MEQ/L (98-107); CREATININE FOR GFR 0.58 MG/DL (0.55-1.30); GLOMERULAR FILTRATION RATE > 60.0 (>60); GLUCOSE, FASTING 107 MG/DL (70-100); POTASSIUM SERUM 4.1 MEQ/L (3.5-5.1); SODIUM LEVEL 140 MEQ/L (136-145); TOTAL PROTEIN 6.8 GM/DL (6.4-8.2)
== END ==
LOC: M WUC 14:09
PROVIDERS: ATTEND Physician Assistant
DX: N92.0 Excessive and frequent menstruation with regular cycle (principal)

== ENCOUNTER 2022-10-24 06:30 | Emergency (ER) | payer OTHER ==
[~2022-10-24] VITALS: Ht 152.4 cm; Wt 43.0 kg
[2022-10-24 08:49] VITALS: BP 142/85
== END 2022-10-24 08:55 | disposition home or self-care (01) ==
LOC: M ED 06:30
DX: S60.221A Contusion of right hand, initial encounter (principal); W19.XXXA Unspecified fall, initial encounter; Y92.410 Unspecified street and highway as the place of occurrence of the external cause; F17.200 Nicotine dependence, unspecified, uncomplicated; Z88.6 Allergy status to analgesic agent

== ENCOUNTER 2023-01-04 22:49 | Emergency (ER) | payer OTHER ==
[~2023-01-04] VITALS: Ht 152.4 cm; Wt 42.2 kg
[2023-01-04 22:49] VITALS: TEMP 97.6
[2023-01-05] MEDS ORDERED: diphenhydrAMINE 50MG/ML VIAL IV ONE (00:25)
[2023-01-05] MEDS ORDERED: PROCHLORPERAZINE 10MG 2ML VIAL IV ONE (00:25)
[2023-01-05] MEDS ORDERED: NS 1,000 ML IV ONE (00:25)
[2023-01-05] MEDS ORDERED: KETOROLAC 30 MG/ML 1ML VIAL IV ONE (00:30)
[2023-01-05 01:02] LABS: BASO # 0.1 10^3/uL (0.0-0.2); BASO % 0.7 % (0.0-1.0); EOS # 0.2 10^3/uL (0.0-0.5); EOS % 3.1 % (0.0-3.0); HEMATOCRIT 38.6 % (36.0-47.0); HEMOGLOBIN 12.5 g/dl (12.0-15.5); LYMPH # 3.3 10^3/uL (1.5-5.0); LYMPH % 44.7 % (24.0-44.0); MEAN CORPUSCULAR HEMOGLOBIN 29.3 pg (27.0-33.0); MEAN CORPUSCULAR HGB CONC 32.4 g/dl (32.0-36.5); MEAN CORPUSCULAR VOLUME 90.6 fl (80.0-96.0); MONO # 0.5 10^3/uL (0.0-0.8); MONO % 7.1 % (2.0-8.0); NEUTROPHILS # 3.3 10^3/uL (1.5-8.5); NEUTROPHILS % 44.3 % (36.0-66.0); PLATELET COUNT, AUTOMATED 270 10^3/uL (150-450); RED BLOOD COUNT 4.26 10^6/uL (4.00-5.40); WHITE BLOOD COUNT 7.4 10^3/uL (4.0-10.0)
[2023-01-05 01:21] LABS: BLOOD UREA NITROGEN 6 MG/DL (9-23); CARBON DIOXIDE LEVEL 28 MMOL/L (20-31); CHLORIDE LEVEL 110 MMOL/L (98-107); CREATININE FOR GFR 0.55 MG/DL (0.55-1.30); GLOMERULAR FILTRATION RATE > 60.0 (>60); GLUCOSE, FASTING 92 MG/DL (60-100); POTASSIUM SERUM 3.9 MMOL/L (3.5-5.1); SODIUM LEVEL 142 MMOL/L (136-145)
[2023-01-05 03:15] VITALS: BP 132/81; O2SAT 97
== END 2023-01-05 03:38 | disposition home or self-care (01) ==
LOC: M ED 22:49
DX: G43.909 Migraine, unspecified, not intractable, without status migrainosus (principal); F17.200 Nicotine dependence, unspecified, uncomplicated; Z88.6 Allergy status to analgesic agent
CPT/HCPCS: 80048; 83735; 85025; 96361; 96374; 96375; 99284; J0780; J1200; J1885

== ENCOUNTER 2023-07-17 03:34 | Emergency (ER) | payer OTHER ==
[~2023-07-17] VITALS: Ht 152.4 cm; Wt 40.7 kg
[2023-07-17 03:34] VITALS: BP 143/89; TEMP 96.8; O2SAT 100
== END 2023-07-17 05:47 | disposition left against medical advice (07) ==
LOC: M ED 03:34
DX: Z53.21 Procedure and treatment not carried out due to patient leaving prior to being seen by health care provider (principal)

== ENCOUNTER 2023-11-27 19:30 | Emergency (ER) | payer OTHER ==
[~2023-11-27] VITALS: Ht 152.4 cm; Wt 36.5 kg
[2023-11-27 19:30] VITALS: BP 103/60; TEMP 99.7; O2SAT 100
[2023-11-27 22:15] LABS: BASO % 0.3 % (0.0-1.0); EOS % 0.2 % (0.0-3.0); HEMATOCRIT 33.7 % (36.0-47.0); HEMOGLOBIN 11.2 g/dl (12.0-15.5); LYMPH # 1.9 10^3/uL (1.5-5.0); LYMPH % 18.1 % (24.0-44.0); MEAN CORPUSCULAR HGB CONC 33.2 g/dl (32.0-36.5); MEAN CORPUSCULAR VOLUME 90.3 fl (80.0-96.0); MONO # 1.1 10^3/uL (0.0-0.8); MONO % 10.4 % (2.0-8.0); NEUTROPHILS # 7.5 10^3/uL (1.5-8.5); NEUTROPHILS % 70.7 % (36.0-66.0); PLATELET COUNT, AUTOMATED 282 10^3/uL (150-450); RED BLOOD COUNT 3.73 10^6/uL (4.00-5.40); WHITE BLOOD COUNT 10.6 10^3/uL (4.0-10.0)
[2023-11-27 22:37] LABS: LIPASE 32 U/L (12-53)
[2023-11-27 22:39] LABS: ALBUMIN 2.9 G/DL (3.2-5.2); ALKALINE PHOSPHATASE 65 U/L (46-116); ALT/SGPT 45 U/L (7.0-40); AST/SGOT 76 U/L (<34); BILIRUBIN,DIRECT 0.1 MG/DL (<0.4); BILIRUBIN,TOTAL 0.4 MG/DL (0.3-1.2); BLOOD UREA NITROGEN 14 MG/DL (9-23); CALCIUM LEVEL 11.5 MG/DL (8.5-10.1); CARBON DIOXIDE LEVEL 29 MMOL/L (20-31); CHLORIDE LEVEL 104 MMOL/L (98-107); CREATININE FOR GFR 0.59 MG/DL (0.55-1.30); GLOMERULAR FILTRATION RATE > 60.0 (>60); GLUCOSE, FASTING 91 MG/DL (60-100); POTASSIUM SERUM 3.4 MMOL/L (3.5-5.1); SODIUM LEVEL 139 MMOL/L (136-145); TOTAL PROTEIN 6.4 G/DL (5.7-8.2)
[2023-11-27 22:44] LABS: HCG, SERUM QUALITATIVE NEGATIVE (NEGATIVE)
== END 2023-11-27 23:45 | disposition left against medical advice (07) ==
LOC: M ED 19:30
DX: Z53.21 Procedure and treatment not carried out due to patient leaving prior to being seen by health care provider (principal)

== ENCOUNTER 2023-12-17 00:34 | Emergency (ER) | payer OTHER ==
[~2023-12-17] VITALS: Ht 152.4 cm; Wt 38.0 kg
[2023-12-17] MEDS ORDERED: LIDOCAINE W/EPINEPHRINE 1% 20ML VIAL SC ONE (04:55)
[2023-12-17] MEDS ORDERED: BACI500O8 TOP (05:34)
[2023-12-17 05:38] VITALS: BP 128/73; TEMP 98; O2SAT 97
== END 2023-12-17 05:46 | disposition home or self-care (01) ==
LOC: M ED 00:34
DX: S51.812A Laceration without foreign body of left forearm, initial encounter (principal); X58.XXXA Exposure to other specified factors, initial encounter; Y92.9 Unspecified place or not applicable; Y93.89 Activity, other specified; Y99.0 Civilian activity done for income or pay

== ENCOUNTER 2024-08-01 22:51 | Emergency (ER) | payer OTHER ==
[~2024-08-01] VITALS: Ht 152.4 cm; Wt 41.9 kg
[~2024-08-01 22:51] MED LIST changes: +BACI500O8 TOP
[2024-08-02] MEDS ORDERED: DOXY100C3 PO (01:08)
[2024-08-02 01:15] VITALS: BP 125/71; TEMP 97.4; O2SAT 100
[2024-08-02] MEDS: ACETAMINOPHEN 500 MG TAB PO ONE (01:23)
[2024-08-02] MEDS: MUPIROCIN 2% OINT 22 GM TUBE TOP ONE (01:23)
== END 2024-08-02 01:30 | disposition home or self-care (01) ==
LOC: M ED 22:51
DX: L03.114 Cellulitis of left upper limb (principal); S61.212A Laceration without foreign body of right middle finger without damage to nail, initial encounter; M25.532 Pain in left wrist; W00.0XXA Fall on same level due to ice and snow, initial encounter; Z88.6 Allergy status to analgesic agent; Z79.2 Long term (current) use of antibiotics; Y92.9 Unspecified place or not applicable; Y93.89 Activity, other specified; Y99.9 Unspecified external cause status